=== PATIENT | female | born 1995 | race Caucasian/White ===

== ENCOUNTER 2019-07-01 10:12 | Emergency (ER) | payer OTHER, SELFPAY ==
--- NOTE | ~2019-07-01 | XR_ITS ---
EXAMINATION: XR knee RT min 4V DATE: 07/01/2019 10:50 INDICATION: Right knee pain. TECHNIQUE: 4 views of right knee were obtained. COMPARISON: None. FINDINGS: Bone alignment is normal. No fracture. There is mild osteoarthritis of lateral compartment. No knee joint effusion. IMPRESSION: 1. Mild right knee osteoarthritis. Reviewed, dictated and finalized at location A.
[2019-07-01 10:25] VITALS: BP 133/89; PULSE 83; RESP 18; TEMP 37.5; O2SAT 99
--- NOTE | 2019-07-01 10:33 | ED.LOWEXIN ---
HPI - Extremity Injury (Lower) General Chief Complaint: Extremity Injury, Lower Stated Complaint: Knee Pain Time Seen by Provider: 07/01/19 10:33 Source: patient and RN notes reviewed History of Present Illness HPI Narrative: Patient is a 24-year-old female that presents the urgent care with complaints of right knee pain. Patient states that she injured it severely at 12 years old and ever since then the knee has been a little unstable and caused her intermittent pain. Patient states that yesterday she squatted down at work and felt a pop and a dislocation of the kneecap . Patient states that since then it is been excruciating pain with difficulty ambulating or bearing weight. Patient states that she took ibuprofen at 530 this morning without much improvement. No other acute complaints or injuries. Patient read the plan of care. Related Data Allergies Allergy/AdvReac Type Severity Reaction Status Date / Time banana Allergy Unknown Verified 07/01/19 10:32 Penicillins Allergy Unknown HIVES Verified 07/01/19 10:32 Review of Systems Review of Systems: Narrative: CONSTITUTIONAL: Denies fever, chills, or sweats. EYES: Denies visual changes, redness, or discharge. ENT: Denies rhinorrhea, congestion, sore throat, or otalgia. CARDIOVASCULAR: Denies chest pain, palpitations, or edema. RESPIRATORY: Denies cough or dyspnea. GASTROINTESTINAL: Denies abdominal pain, nausea, vomiting, or diarrhea. GENITOURINARY: Denies dysuria or hematuria. SKIN: Denies rash or itching. MUSCULOSKELETAL: Reports of right knee pain NEUROLOGIC: Denies headache, numbness, or weakness. All other systems reviewed are negative, except as documented in HPI. PMFSH Comments At the time of my signature, I reviewed and agree with the nursing past medical, surgical, social, and family history. There is no relevant family history pertinent to the patient complaint. Exam Narrative: Exam Narrative: GENERAL: This is a well-nourished, well-developed patient, in no apparent distress. HEAD: normocephalic, atraumatic. EYES: PERRL. Sclera clear/white. Vision is grossly intact. EARS: External ears normal NOSE: External nose normal with no obvious nasal discharge THROAT: Mucous membranes moist NECK: Neck supple CARDIOVASCULAR: Regular rate and rhythm without murmurs, gallops, or rubs. RESPIRATORY: Clear to auscultation. Breath sounds equal bilaterally. No wheezes, rales, or rhonchi. SKIN: warm, intact with no suspicious lesions or rash, good texture and turgor. NEURO: awake, alert, and oriented to person, place and time. There were no obvious focal neurologic abnormalities. EXTREMITIES: Moderate Course Vital Signs Vital signs: Vital Signs Temperature 99.5 F 07/01/19 10:25 Pulse Rate 83 07/01/19 10:25 Respiratory Rate 18 07/01/19 10:25 Blood Pressure 133/89 07/01/19 10:25 Pulse Oximetry 99 07/01/19 10:25 Temperature 99.5 F 07/01/19 10:25 Pulse Rate 83 07/01/19 10:25 Respiratory Rate 18 07/01/19 10:25 Blood Pressure 133/89 07/01/19 10:25 Pulse Oximetry 99 07/01/19 10:25 Reviewed MDM - Extremity Injury (Lower) MDM Narrative Medical decision making narrative: Reviewed x-ray results with the patient. She is aware that x-ray does not reveal any meniscal injuries but that is likely the case. Patient needs to follow-up with a CT/MRI from a primary care doctor or an orthopedic. Patient does have mild knee osteoarthritis seen on x-ray. No fracture or bone alignment abnormality. No obvious joint effusion on x-ray. Advised the patient to wear her knee immobilizer or at the very least an Judd wrap. Patient may also obtain crutches. Patient states that her Workmen's Comp. does not cover our facility and therefore will obtain those things outside of our facility. Keep the knee elevated and use ice. Use pain medicine as needed for pain. Advised the patient to follow-up with her PCP within 2 to 5 days to obtain further imaging. Differential
== END 2019-07-01 11:20 | disposition home or self-care (01) ==
PROVIDERS: Emergency Provider Nurse Practitioner Family; PCP Family Medicine
DX: S89.91XA Unspecified injury of right lower leg, initial encounter (principal); X50.9XXA Other and unspecified overexertion or strenuous movements or postures, initial encounter; M17.11 Unilateral primary osteoarthritis, right knee
CPT/HCPCS: 73564; 99213; G0463

== ENCOUNTER 2020-12-27 06:43 | Observation (INO) | payer OTHER, SELFPAY ==
[2020-12-27] VITALS (35 sets, daily range): BP systolic 108–121; BP diastolic 64–82; PULSE 55–96; RESP 20; TEMP 36.3; O2SAT 92–100; BMI 38.2
--- NOTE | 2020-12-27 02:30 | OBADM ---
This patient, Lobo Hahn, admitted to the OB room OB Post 117 for observation. Patient/family oriented to hospital policies and general routines including ID bracelet, bed and alarms, visiting hours, pain management, procedures, bathroom and other care routines, personal items, smoking policy, room service/diet, and visiting hours. Patient/Family are encouraged to report perceived risks to care and to ask questions if they do not understand what they are told or what they should do.
[2020-12-27] MEDS: ONDANSETRON INJ 4 MG/2 ML VIAL IV PUSH (03:33)
[2020-12-27] MEDS: HYDROcodone/acetaminophen (*CRX) 5-325 MG TABLET 2 TAB PO (03:33)
[2020-12-27] MEDS: TERBUTALINE SULFATE 1 MG/ML VIAL 0.25 MG SUB-Q (04:17)
--- NOTE | 2021-01-19 19:27 | PM.OBTRLD ---
OB - Triage/Final Diagnosis Visit Information Comments/Additional reasons for admission: I have assessed the risk for this patient, Lobo Hahn, and determined that she would benefit from observation care. Final Diagnosis (1) Gestational hypertension: Code(s): O13.9 - Gestational [-induced] hypertension without significant proteinuria, unspecified trimester Status: Acute
== END 2020-12-27 06:50 | disposition home or self-care (01) ==
LOC: ANHOBOP 06:45 → ANHOBPP 06:47
PROVIDERS: Admitting Provider Obstetrics & Gynecology; PCP Family Medicine; Visit Provider Obstetrics & Gynecology
DX: O13.3 Gestational [pregnancy-induced] hypertension without significant proteinuria, third trimester (principal); Z3A.33 33 weeks gestation of pregnancy
CPT/HCPCS: 96372; 96374; A9270; G0378; G0379; J2405; J3105

== ENCOUNTER 2021-01-09 23:43 | Observation (INO) | payer OTHER, SELFPAY ==
--- NOTE | 2021-01-09 23:43 | OBADM ---
This patient, Lobo Hahn, admitted to the OB room OB Post 113 for observation. Patient/family oriented to hospital policies and general routines including ID bracelet, bed and alarms, visiting hours, pain management, procedures, bathroom and other care routines, personal items, smoking policy, room service/diet, and visiting hours. Patient/Family are encouraged to report perceived risks to care and to ask questions if they do not understand what they are told or what they should do.
[2021-01-10 00:13] VITALS: BMI 39.7
[2021-01-10 00:14] VITALS: BP 105/77; PULSE 82
[2021-01-10 00:19] VITALS: TEMP 36.2
[2021-01-10 00:30] VITALS: BP 118/77; PULSE 92
[2021-01-10] MEDS: ACETAMINOPHEN 500 MG TABLET 1000 MG PO (00:32)
[2021-01-10 00:50] LABS: Add Urine Microscopic? YES; Appearance Urine Cloudy (Clear); Bacteria Urine Trace /hpf; Bilirubin Urine Negative (Negative); Blood Urine Negative (Negative); Color Urine Yellow (Yellow); Glucose Urine UA Negative (Negative); Ketones Urine Negative (Negative); Leukocyte Esterase Ur 2+ LEU/UL (NEGATIVE); Mucus Urine Rare /lpf; Nitrate Urine Negative (Negative); Protein Urine 1+ mg/dL (Negative); RBC Urine >75 /hpf (0-2); Specific Grav Ur 1.023 (1.001-1.035); Squamous Epithelial Cell Urine Many /hpf (Few); WBC Urine 21-30 /hpf (0-3)
[2021-01-10 01:01] VITALS: BP 116/78; PULSE 73
--- NOTE | 2021-02-02 18:53 | P.PNOB_ITS ---
OB - Triage/Final Diagnosis Visit Information Comments/Additional reasons for admission: I have assessed the risk for this patient, Lobo Hahn, and determined that she would benefit from observation care. Evaluation Laboratory results: Laboratory Tests 01/10/21 00:06 Urine Color Yellow Urine Appearance Cloudy H Urine pH 6.0 Ur Specific [place] 1.023 Urine Protein 1+ H Urine Glucose (UA) Negative Urine Ketones Negative Ur Blood (Man) Negative Urine Nitrate Negative Urine Bilirubin Negative Urine Urobilinogen 2.0 H Ur Leukocyte Esterase 2+ H Urine RBC >75 H Urine WBC 21-30 H Ur Squamous Epith Cells Many H Urine Bacteria Trace Urine Mucus Rare Final Diagnosis (1) False labor: Code(s): O47.9 - False labor, unspecified Status: Acute
== END 2021-01-10 01:35 | disposition home or self-care (01) ==
PROVIDERS: Admitting Provider Obstetrics & Gynecology; PCP Family Medicine; Visit Provider Obstetrics & Gynecology
DX: O47.1 False labor at or after 37 completed weeks of gestation (principal); Z3A.39 39 weeks gestation of pregnancy
CPT/HCPCS: 81001; 87086; 87088; A9270; G0378; G0379

== ENCOUNTER 2021-01-14 13:07 | Outpatient (CLI) | payer OTHER, SELFPAY ==
[2021-01-14] VITALS (17 sets, daily range): BP systolic 113–136; BP diastolic 73–102; PULSE 68–90
[2021-01-14 14:01] LABS: Basophils Percent Auto 0.2 % (0.2-1.2); Eosinophils Percent Auto 0.3 % (0-4.4); Hematocrit 35.5 % (37.0-47.0); Hemoglobin 12.4 g/dL (12.0-15.0); Immature Granulocyte Absolute 0.07 K/mm3 (0.00-0.031); Immature Granulocyte Percent A 0.7 % (0-0.5); Lymphocytes Absolute Auto 1.58 K/mm3 (0.9-3.2); Lymphocytes Percent Auto 15.3 % (18.3-44.2); Mean Corpuscular HGB Conc 34.9 g/dl (32-36); Mean Corpuscular Hemoglobin 30.3 pg (26-34); Mean Corpuscular Volume 86.8 fl (80-100); Monocytes Absolute Auto 0.5 K/mm3 (0.1-0.6); Monocytes Percent Auto 4.5 % (2.6-8.5); Neutrophils Absolute Auto 8.1 K/mm3 (1.3-6.7); Platelet Count Result 226 k/mm3 (150-375); Red Blood Count 4.09 M/mm3 (4.2-5.4); Red Cell Distribution Width 13.3 % (11.5-14.5); White Blood Count 10.3 K/mm3 (4.5-10.0)
[2021-01-14 14:12] LABS: Alanine Aminotransferase 12 U/L (4-35); Albumin Level 3.4 g/dL (3.5-5.1); Alkaline Phosphatase 123 U/L (38-126); Anion Gap 9 mmol/L (8-16); Aspartate Amino Transferase 17 U/L (14-36); Bilirubin,Total 0.4 mg/dL (0.2-1.3); Blood Urea Nitrogen 7 mg/dL (7-17); Calcium 9.1 mg/dL (8.4-10.2); Carbon Dioxide 19 mmol/L (22-30); Chloride 108 mmol/L (98-107); Estimated Glomerular Filt Rate > 60; Glucose 92 mg/dL (65-110); Potassium 3.7 mmol/L (3.4-5.0); Sodium 136 mmol/L (137-145); Uric Acid 7.2 mg/dL (2.5-7.5)
[2021-01-14 15:13] LABS: Creatinine Urine 216.7 mg/dL
[2021-01-14 15:28] LABS: Total Protein Urine Random < 5 mg/dL; Ur Ttl Prot Creatinine Ratio 0.02 mg/mg (0-0.20)
[2021-01-14 15:50] LABS: Add Urine Microscopic? YES; Appearance Urine Cloudy (Clear); Bacteria Urine Trace /hpf; Bilirubin Urine Negative (Negative); Blood Urine Negative (Negative); Calcium Oxalate Crystals Urine Present /hpf; Color Urine Yellow (Yellow); Glucose Urine UA Negative (Negative); Ketones Urine Negative (Negative); Leukocyte Esterase Ur Trace LEU/UL (NEGATIVE); Mucus Urine Few /lpf; Nitrate Urine Negative (Negative); Protein Urine 1+ mg/dL (Negative); Specific Grav Ur 1.024 (1.001-1.035); Squamous Epithelial Cell Urine Occasional /hpf (Few); Urobilinogen Urine Negative mg/dL (<2.0); WBC Urine 0-3 /hpf (0-3)
--- NOTE | 2021-01-14 17:43 | PC.NURSE ---
174--Report to Dr. Mclaughlin. Orders to DC home with instructions to return for signs of labor or increasing signs of preeclampsia.
== END 2021-01-14 17:55 | disposition home or self-care (01) ==
LOC: ANHOBOP 13:13 → ANHOBPP 13:14
PROVIDERS: PCP Family Medicine; Visit Provider Obstetrics & Gynecology
DX: O13.9 Gestational [pregnancy-induced] hypertension without significant proteinuria, unspecified trimester (principal); Z3A.00 Weeks of gestation of pregnancy not specified
CPT/HCPCS: 36415; 80053; 81001; 82570; 84156; 84550; 85025; 87086; 99199; A9270

== ENCOUNTER 2021-01-15 21:16 | Observation (INO) | payer OTHER, SELFPAY ==
--- NOTE | ~2021-01-15 | CT_ITS ---
EXAMINATION: CT brain wo con DATE: 01/16/2021 11:20 INDICATION: Headache. TECHNIQUE: Computed tomography (CT) of the head was performed without intravenous contrast. The mA wa s adjusted according to patient size. Iterative reconstruction technique was employed. The dose-lengt h product was 605.33 mGy-cm. COMPARISON: None FINDINGS: There is no intracranial hemorrhage, acute infarction, or abnormal intracranial mass lesion . The ventricles are normal in size. The paranasal sinuses are clear. The orbits are normal. The mast oid air cells are normal. IMPRESSION: 1. Normal brain. Reviewed, dictated and finalized at location A. IMPRESSION: 1. Normal brain.
[2021-01-15 13:05] VITALS: BP 114/73; PULSE 88
[2021-01-15] MEDS: diphenhydrAMINE HCl INJ 50 MG/ML VIAL 25 MG IV PUSH (13:11)
[2021-01-15] MEDS: METOCLOPRAMIDE HCL INJ 10 MG/2 ML VIAL IV PUSH (13:12)
[2021-01-15 13:15] VITALS: BP 115/80; PULSE 79
[2021-01-15 13:18] LABS: Basophils Percent Auto 0.4 % (0.2-1.2); Eosinophils Absolute Auto 0.1 K/mm3 (0-0.3); Eosinophils Percent Auto 0.6 % (0-4.4); Hematocrit 34.1 % (37.0-47.0); Hemoglobin 11.8 g/dL (12.0-15.0); Immature Granulocyte Absolute 0.07 K/mm3 (0.00-0.031); Immature Granulocyte Percent A 0.7 % (0-0.5); Lymphocytes Absolute Auto 1.64 K/mm3 (0.9-3.2); Lymphocytes Percent Auto 17.2 % (18.3-44.2); Mean Corpuscular HGB Conc 34.6 g/dl (32-36); Mean Corpuscular Hemoglobin 29.8 pg (26-34); Mean Corpuscular Volume 86.1 fl (80-100); Mean Platelet Volume 10.1 fl (7.4-10.4); Monocytes Absolute Auto 0.4 K/mm3 (0.1-0.6); Monocytes Percent Auto 4.2 % (2.6-8.5); Neutrophils Absolute Auto 7.3 K/mm3 (1.3-6.7); Neutrophils Percent Auto 76.9 % (45.5-73.1); Platelet Count Result 211 k/mm3 (150-375); Red Blood Count 3.96 M/mm3 (4.2-5.4); Red Cell Distribution Width 13.3 % (11.5-14.5); White Blood Count 9.5 K/mm3 (4.5-10.0)
[2021-01-15 13:29] LABS: Alanine Aminotransferase 12 U/L (4-35); Albumin Level 3.1 g/dL (3.5-5.1); Alkaline Phosphatase 108 U/L (38-126); Anion Gap 8 mmol/L (8-16); Aspartate Amino Transferase 24 U/L (14-36); Bilirubin,Total 0.5 mg/dL (0.2-1.3); Blood Urea Nitrogen 6 mg/dL (7-17); Calcium 9.1 mg/dL (8.4-10.2); Carbon Dioxide 19 mmol/L (22-30); Chloride 108 mmol/L (98-107); Estimated Glomerular Filt Rate > 60; Glucose 114 mg/dL (65-110); Potassium 3.6 mmol/L (3.4-5.0); Sodium 135 mmol/L (137-145); Uric Acid 7.1 mg/dL (2.5-7.5)
[2021-01-15 13:31] VITALS: BP 110/75; PULSE 67
[2021-01-15 14:35] LABS: Creatinine Urine 268.8 mg/dL
[2021-01-15] MEDS: CYCLOBENZAPRINE HCL 10 MG TABLET PO (15:26)
[2021-01-15 16:19] LABS: Total Protein Urine Random < 5 mg/dL; Ur Ttl Prot Creatinine Ratio < 0.02 mg/mg (0-0.20)
[2021-01-15] MEDS: oxyCODONE HCL (*CRX) 5 MG TAB IR PO ×2 (18:13→20:58)
[2021-01-15] MEDS: LACTATED RINGERS 500 ML 999 ML IV CONT (18:51)
[2021-01-15 18:58] VITALS: BP 122/81; PULSE 75
[2021-01-15 20:46] VITALS: BP 122/86; PULSE 70
[2021-01-15 21:21] VITALS: PULSE 70; RESP 16
[2021-01-16] VITALS (7 sets, daily range): BP systolic 116–129; BP diastolic 76–86; PULSE 59–75; RESP 16; TEMP 36.4–36.9
[2021-01-16] MEDS: oxyCODONE HCL (*CRX) 5 MG TAB IR PO ×2 (00:51→07:07)
[2021-01-16] MEDS: LACTATED RINGERS 1,000 ML 150 ML IV CONT ×4 (02:39→22:50)
[2021-01-16] MEDS: fentaNYL CITRATE INJ (*CRX) 100 MCG/2 ML VIAL 50 MCG IV PUSH (02:43)
[2021-01-16] MEDS: PROMETHAZINE HCL 25 MG/ML AMPUL 12.5 MG IV PUSH ×2 (02:44→08:07)
[2021-01-16 05:02] LABS: Basophils Percent Auto 0.4 % (0.2-1.2); Eosinophils Absolute Auto 0.1 K/mm3 (0-0.3); Hematocrit 32.6 % (37.0-47.0); Hemoglobin 11.1 g/dL (12.0-15.0); Immature Granulocyte Absolute 0.07 K/mm3 (0.00-0.031); Immature Granulocyte Percent A 0.9 % (0-0.5); Lymphocytes Absolute Auto 1.97 K/mm3 (0.9-3.2); Lymphocytes Percent Auto 25.6 % (18.3-44.2); Mean Corpuscular Hemoglobin 30.4 pg (26-34); Mean Corpuscular Volume 89.3 fl (80-100); Mean Platelet Volume 9.7 fl (7.4-10.4); Monocytes Absolute Auto 0.4 K/mm3 (0.1-0.6); Monocytes Percent Auto 5.3 % (2.6-8.5); Neutrophils Absolute Auto 5.1 K/mm3 (1.3-6.7); Neutrophils Percent Auto 66.8 % (45.5-73.1); Platelet Count Result 162 k/mm3 (150-375); Red Blood Count 3.65 M/mm3 (4.2-5.4); Red Cell Distribution Width 13.6 % (11.5-14.5); White Blood Count 7.7 K/mm3 (4.5-10.0)
[2021-01-16 05:16] LABS: Alanine Aminotransferase 11 U/L (4-35); Albumin Level 2.8 g/dL (3.5-5.1); Alkaline Phosphatase 101 U/L (38-126); Anion Gap 5 mmol/L (8-16); Aspartate Amino Transferase 17 U/L (14-36); Bilirubin,Total 0.2 mg/dL (0.2-1.3); Blood Urea Nitrogen 5 mg/dL (7-17); Calcium 8.7 mg/dL (8.4-10.2); Carbon Dioxide 23 mmol/L (22-30); Chloride 110 mmol/L (98-107); Estimated Glomerular Filt Rate > 60; Glucose 99 mg/dL (65-110); Potassium 3.7 mmol/L (3.4-5.0); Sodium 138 mmol/L (137-145); Uric Acid 6.9 mg/dL (2.5-7.5)
--- NOTE | 2021-01-16 08:06 | PM.IMHP ---
H&P: HPI History of Present Illness Date/Time: 01/16/21 08:06 this patient is a 25-year-old 1 at 36 weeks and 0 day gestation. She presented complaining of a headache. It is a frontal headache. she describes as pressure. It is throbbing. She has light sensitivity. She reports diffuse abdominal pain throughout her abdomen. It is vague. Patient denies any visual disturbances. Patient denies any worsening edema. Patient reports good movement. She denies any cramping or contractions. She denies any vaginal bleeding. She denies any fevers or chills, nausea, vomiting. Chief Complaint: Headache Review of Systems Review of Systems: All systems reviewed & are unremarkable except as noted in HPI and below Constitutional: Constitutional: Denies chills, Denies fatigue, Denies fever(s) and Denies weakness Eyes: Eyes: Denies blurry vision, Denies change in vision, Denies loss of peripheral vision, Denies loss of vision, Denies other visual disturbances and Denies eye pain ENT: Denies vertigo, Denies dizziness, Denies hearing loss, Denies mouth pain, Denies nasal obstruction, Denies neck mass and Denies neck pain Cardiovascular: Cardiovascular: Denies chest pain, Denies diaphoresis, Denies syncope, Denies leg edema and Denies dyspnea Respiratory: Respiratory: Denies chest congestion, Denies cough, Denies hemoptysis, Denies dyspnea and Denies wheezing Gastrointestinal: Gastrointestinal: Denies abdominal pain, Denies constipation, Denies diarrhea, Denies nausea and Denies vomiting Genitourinary: Genitourinary: Denies hematuria, Denies change in libido, Denies nocturia, Denies genital lesions, Denies flank pain and Denies urinary urgency Musculoskeletal: Musculoskeletal: Denies abnormal gait, Denies back pain, Denies myalgias, Denies arthralgias, Denies joint swelling, Denies muscle weakness and Denies neck pain Integumentary/Breasts: Skin/Breast: Denies swelling, Denies breast pain, Denies breast mass, Denies dry skin, Denies nipple discharge, Denies unusual bruising and Denies jaundice Neurologic: Denies Neuro-related abnormal movements, Denies Abnormal speech present, Denies abnormal gait, Denies behavioral changes, Denies confusion, Denies vertigo, Denies dizziness, Denies syncope, Denies loss of vision, Denies memory loss, Denies convulsions and Denies weakness Psychiatric: Psychiatric: Denies abnormal sleep pattern, Denies behavioral changes, Denies change in libido, Denies confusion, Denies depression, Denies anhedonia and Denies memory loss Endocrine: Endocrine: Reports no additional endocrine complaints, Denies change in libido and Denies fatigue Hematologic/Lymphatic: Hematologic/Lymphatic: Reports no additional hematologic/lymphatic complaints Allergic/Immunologic: Allergic/Immunologic: Reports no additional allergic/immunologic complaints and Denies wheezing PMFSH Family History Family History (Updated 01/14/21 @ 13:38 by Reed Vera, MANGO) Grandparent Breast cancer in female Alzheimer disease Father Hypertension Kidney stones Gall stones Arthritis Mother Thyroid goiter Social History Social History Substance use: former Spiritual care concerns: No Meds Home Medications and Allergies Home Medications Medication Instructions Recorded Confirmed Type PNV cmb#95-ferrous fumarate-FA 1 tablet PO DAILY 01/10/21 01/15/21 History [] Allergies Allergy/AdvReac Type Severity Reaction Status Date / Time banana Allergy Unknown Swelling Verified 01/14/21 13:33 Penicillins Allergy Unknown HIVES Verified 11/07/19 09:06 Vital Signs Vital Signs - 24 hr 01/15/21 13:05 01/15/21 13:15 01/15/21 13:31 Temperature Pulse Rate 88 79 67 Respiratory Rate Blood Pressure 114/73 115/80 110/75 01/15/21 18:58 01/15/21 20:46 01/15/21 21:21 Temperature Pulse Rate 75 70 70 Respiratory Rate 16 Blood Pressure 122/81 122/
[2021-01-16] MEDS: fentaNYL CITRATE INJ (*CRX) 100 MCG/2 ML VIAL IV PUSH (08:08)
--- NOTE | 2021-01-16 12:34 | WPDNEURCNPN ---
Assessment and Plan Additional Plan considering the complaint of severe headache will obtain the plain CT scan of the head without contrast with abdominal shielding once she delivers the baby further evaluation will be done according if he continues to have frequent severe headaches I might consider the spinal tap to rule out the possibility of pseudotumor cerebri as well and also MRI of the brain thank you very much for letting me evaluate this patient Consult date: 01/16/21 HPI: Lobo Hahn is a 25 year old female 1 at 36 weeks gestation admitted to the hospital neurology consultation obtained for the complains of severe frontal headache with photophobia and phonophobia without obvious nausea and vomiting in addition to no other medical significant problem Review of Systems Review of Systems: All systems reviewed & are unremarkable except as noted in HPI and below PMFSH Family History Family History Grandparent Breast cancer in female Alzheimer disease Father Hypertension Kidney stones Gall stones Arthritis Mother Thyroid goiter Social History Social History Substance use: former Spiritual care concerns: No Meds Home Medications and Allergies Home Medications Medication Instructions Recorded Confirmed Type PNV cmb#95-ferrous fumarate-FA 1 tablet PO DAILY 01/10/21 01/15/21 History [] Allergies Allergy/AdvReac Type Severity Reaction Status Date / Time banana Allergy Unknown Swelling Verified 01/14/21 13:33 Penicillins Allergy Unknown HIVES Verified 11/07/19 09:06 Vital Signs Vital Signs - 24 hr 01/15/21 13:05 01/15/21 13:15 01/15/21 13:31 Temperature Pulse Rate 88 79 67 Respiratory Rate Blood Pressure 114/73 115/80 110/75 01/15/21 18:58 01/15/21 20:46 01/15/21 21:21 Temperature Pulse Rate 75 70 70 Respiratory Rate 16 Blood Pressure 122/81 122/86 01/16/21 00:04 01/16/21 00:52 01/16/21 02:37 Temperature 36.7 C Pulse Rate 75 61 Respiratory Rate 16 Blood Pressure 126/78 124/77 01/16/21 04:51 01/16/21 07:10 Temperature 36.4 C Pulse Rate 59 L 62 Respiratory Rate 16 Blood Pressure 116/76 120/86 Exam Narrative: examination revealed her to be awake alert cooperative in no obvious acute distress head normocephalic with no cranial bruit ear nose throat examination normal neck supple with no meningeal signs no cervical bruit no thyromegaly no lymphadenopathy heart regular with no murmur lungs were clear to auscultation abdomen is soft protuberant neurological is she was awake alert oriented x3 with normal full speech without evidence of dysphagia dysarthria or dysphonia pupils round regular feels the vision full extraocular movements full face symmetrical tongue midline motor examination revealed her to have normal strength and tone in both upper and lower extremities reflexes symmetrical plantars downgoing no evidence of gross sensory or cerebellar deficit Results Labs CBC & Chem 7: 01/16/21 04:56 01/16/21 04:56 Labs: Short CBC 01/15/21 01/16/21 Range/Units 13:02 04:56 WBC 9.5 7.7 (4.5-10.0) K/mm3 Hgb 11.8 L 11.1 L (12.0-15.0) g/dL Hct 34.1 L 32.6 L (37.0-47.0) % Plt Count 211 162 (150-375) k/mm3 BMP 01/15/21 01/16/21 13:02 04:56 Sodium 135 L 138 Potassium 3.6 3.7 Chloride 108 H 110 H Carbon Dioxide 19 L 23 BUN 6 L 5 L Creatinine 0.50 L 0.60 L Glucose 114 H 99 Calcium 9.1 8.7 Liver Function 01/15/21 01/16/21 Range/Units 13:02 04:56 Total Bilirubin 0.5 0.2 (0.2-1.3) mg/dL AST 24 17 (14-36) U/L ALT 12 11 (4-35) U/L Alkaline Phosphatase 108 101 (38-126) U/L Albumin 3.1 L 2.8 L (3.5-5.1) g/dL AMG Consult Billing Inpatient Consult [id number] Consult Moderate
[2021-01-16] MEDS: oxyCODONE/ACETAMINOPHEN (*CRX) 5-325 MG TABLET 2 TABLET PO (12:39)
--- NOTE | 2021-01-16 19:09 | PC.NURSE ---
Called Dr. Sykes and asked for NST q 8hour due to reactive tracing and no contractions. also asked for fioricet for headache as needed. order received for NST Q 8H and Fiorricet for headache.
[2021-01-17 04:52] VITALS: BP 133/85; PULSE 60
[2021-01-17] MEDS: LACTATED RINGERS 1,000 ML 150 ML IV CONT (05:14)
[2021-01-17 05:31] VITALS: BP 133/85; PULSE 60
--- NOTE | 2021-01-17 07:58 | P.PNOB_ITS ---
Pain Control Date/time seen: 01/17/21 07:58 Comments: Lobo is a 25yo G1 at 36 weeks with persistent pressure headache, worse behind eyes. Is consistently a 7-8 on pain scale, though fentanyl and fioricet help it a bit. Denies visual sx, no photophobia or phonophobia, no sinus pain. Status status: Category l Assessment and Plan Comments: s/p neuro consult and normal CT scan I suspect psuedotumor cerebri more likely than atypical preE. 24 hour urine done this afternoon Since neuro does not want to do spinal tap, will try Diamox to see if her CALLE imp roves. If 24 hour urine normal, consider DC home with very close follow up.
[2021-01-17] MEDS: acetaZOLAMIDE TAB 250 MG TABLET 500 MG PO (08:39)
[2021-01-17 08:42] VITALS: BP 119/80; PULSE 67
--- NOTE | 2021-01-17 10:30 | PC.NURSE ---
Patient states that she is feeling a bit better, states that her light sensitivity is better but her still have pressure in her head
[2021-01-17 13:40] VITALS: BMI 41.8
[2021-01-17 15:08] VITALS: BP 130/87; PULSE 73
--- NOTE | 2021-01-17 16:15 | PC.NURSE ---
Patient states that she is having a little tingling in her face and hands. Dr Mclaughlin notified of this, plan for 24 hours urine to run and if less than 300 may dc patient home with RX.
[2021-01-17 16:30] LABS: Collection Time Urine 24 HOURS
[2021-01-17 16:34] LABS: Total Volume 24 Hour Urine 2000 ml
[2021-01-17 16:35] LABS: Patient Weight 308 Lbs; Total Volume 24 Hour Urine 2000 ml
[2021-01-17 16:47] LABS: Creatinine Clearance Urine 125.6 ml/min (75-125)
[2021-01-17 16:48] LABS: Total Protein Urine 24 Hr 160 mg/24hr (28-141); Total Protein Urine Random 8 mg/dL
[2021-01-17 17:59] VITALS: BP 133/85; PULSE 73
--- NOTE | 2021-01-27 09:41 | PM.OBTRLD ---
OB - Triage/Final Diagnosis Visit Information Comments/Additional reasons for admission: I have assessed the risk for this patient, Lobo Hahn, and determined that she would benefit from observation care. Evaluation Laboratory results: Laboratory Tests 01/15/21 01/15/21 01/15/21 13:02 13:02 13:02 WBC 9.5 RBC 3.96 L Hgb 11.8 L Hct 34.1 L MCV 86.1 MCH 29.8 MCHC 34.6 RDW 13.3 Plt Count 211 MPV 10.1 Immature Gran % (Auto) 0.7 H Neut % (Auto) 76.9 H Lymph % (Auto) 17.2 L [place] % (Auto) 4.2 Eos % (Auto) 0.6 Baso % (Auto) 0.4 Lymph # (Auto) 1.64 [place] # (Auto) 0.4 Eos # (Auto) 0.1 Baso # (Auto) 0.0 Abs Immat Gran (auto) 0.07 H Absolute Neuts (auto) 7.3 H Absolute Nucleated RBC 0.0 Nucleated RBC % 0.0 Sodium 135 L Potassium 3.6 Chloride 108 H Carbon Dioxide 19 L Anion Gap 8 BUN 6 L Creatinine 0.50 L Estim Creat Clear Calc Not Reportable Estimated GFR > 60 Glucose 114 H Uric Acid 7.1 Calcium 9.1 Total Bilirubin 0.5 AST 24 ALT 12 Alkaline Phosphatase 108 Total Protein 6.0 L Albumin 3.1 L U Random Total Protein < 5 Ur 24 Hour Volume Urine Creatinine 268.8 Creatinine Clearance Ur Total Protein 24 Hr Protein/Creat Ratio 2 < 0.02 01/16/21 01/16/21 01/16/21 04:56 04:56 13:30 WBC 7.7 RBC 3.65 L Hgb 11.1 L Hct 32.6 L MCV 89.3 MCH 30.4 MCHC 34.0 RDW 13.6 Plt Count 162 MPV 9.7 Immature Gran % (Auto) 0.9 H Neut % (Auto) 66.8 Lymph % (Auto) 25.6 [place] % (Auto) 5.3 Eos % (Auto) 1.0 Baso % (Auto) 0.4 Lymph # (Auto) 1.97 [place] # (Auto) 0.4 Eos # (Auto) 0.1 Baso # (Auto) 0.0 Abs Immat Gran (auto) 0.07 H Absolute Neuts (auto) 5.1 Absolute Nucleated RBC 0.0 Nucleated RBC % 0.0 Sodium 138 Potassium 3.7 Chloride 110 H Carbon Dioxide 23 Anion Gap 5 L BUN 5 L Creatinine 0.60 L Estim Creat Clear Calc Not Reportable Estimated GFR > 60 Glucose 99 Uric Acid 6.9 Calcium 8.7 Total Bilirubin 0.2 AST 17 ALT 11 Alkaline Phosphatase 101 Total Protein 6.0 L Albumin 2.8 L U Random Total Protein Ur 24 Hour Volume 2000 Urine Creatinine 80.0 Creatinine Clearance 125.6 H Ur Total Protein 24 Hr Protein/Creat Ratio 2 01/16/21 13:30 WBC RBC Hgb Hct MCV MCH MCHC RDW Plt Count MPV Immature Gran % (Auto) Neut % (Auto) Lymph % (Auto) [place] % (Auto) Eos % (Auto) Baso % (Auto) Lymph # (Auto) [place] # (Auto) Eos # (Auto) Baso # (Auto) Abs Immat Gran (auto) Absolute Neuts (auto) Absolute Nucleated RBC Nucleated RBC % Sodium Potassium Chloride Carbon Dioxide Anion Gap BUN Creatinine Estim Creat Clear Calc Estimated GFR Glucose Uric Acid Calcium Total Bilirubin AST ALT Alkaline Phosphatase Total Protein Albumin U Random Total Protein 8 Ur 24 Hour Volume 2000 Urine Creatinine Creatinine Clearance Ur Total Protein 24 Hr 160 H Protein/Creat Ratio 2 Final Diagnosis (1) False labor: Code(s): O47.9 - False labor, unspecified Status: Acute
--- NOTE | 2021-01-31 07:47 | PM.OBTRLD ---
OB - Triage/Final Diagnosis Visit Information Comments/Additional reasons for admission: I have assessed the risk for this patient, Lobo Hahn, and determined that she would benefit from observation care. Evaluation Laboratory results: Laboratory Tests 01/15/21 01/15/21 01/15/21 13:02 13:02 13:02 WBC 9.5 RBC 3.96 L Hgb 11.8 L Hct 34.1 L MCV 86.1 MCH 29.8 MCHC 34.6 RDW 13.3 Plt Count 211 MPV 10.1 Immature Gran % (Auto) 0.7 H Neut % (Auto) 76.9 H Lymph % (Auto) 17.[address] [place] % (Auto) 4.2 Eos % (Auto) 0.6 Baso % (Auto) 0.4 Lymph # (Auto) 1.64 [place] # (Auto) 0.4 Eos # (Auto) 0.1 Baso # (Auto) 0.0 Abs Immat Gran (auto) 0.07 H Absolute Neuts (auto) 7.3 H Absolute Nucleated RBC 0.0 Nucleated RBC % 0.0 Sodium 135 L Potassium 3.6 Chloride 108 H Carbon Dioxide 19 L Anion Gap 8 BUN 6 L Creatinine 0.50 L Estim Creat Clear Calc Not Reportable Estimated GFR > 60 Glucose 114 H Uric Acid 7.1 Calcium 9.1 Total Bilirubin 0.5 AST 24 ALT 12 Alkaline Phosphatase 108 Total Protein 6.0 L Albumin 3.1 L U Random Total Protein < 5 Ur 24 Hour Volume Urine Creatinine 268.8 Creatinine Clearance Ur Total Protein 24 Hr Protein/Creat Ratio 2 < 0.02 01/16/21 01/16/21 01/16/21 04:56 04:56 13:30 WBC 7.7 RBC 3.65 L Hgb 11.1 L Hct 32.6 L MCV 89.3 MCH 30.4 MCHC 34.0 RDW 13.6 Plt Count 162 MPV 9.7 Immature Gran % (Auto) 0.9 H Neut % (Auto) 66.8 Lymph % (Auto) 25.6 [place] % (Auto) 5.3 Eos % (Auto) 1.0 Baso % (Auto) 0.4 Lymph # (Auto) 1.97 [place] # (Auto) 0.4 Eos # (Auto) 0.1 Baso # (Auto) 0.0 Abs Immat Gran (auto) 0.07 H Absolute Neuts (auto) 5.1 Absolute Nucleated RBC 0.0 Nucleated RBC % 0.0 Sodium 138 Potassium 3.7 Chloride 110 H Carbon Dioxide 23 Anion Gap 5 L BUN 5 L Creatinine 0.60 L Estim Creat Clear Calc Not Reportable Estimated GFR > 60 Glucose 99 Uric Acid 6.9 Calcium 8.7 Total Bilirubin 0.2 AST 17 ALT 11 Alkaline Phosphatase 101 Total Protein 6.0 L Albumin 2.8 L U Random Total Protein Ur 24 Hour Volume 2000 Urine Creatinine 80.0 Creatinine Clearance 125.6 H Ur Total Protein 24 Hr Protein/Creat Ratio 2 01/16/21 13:30 WBC RBC Hgb Hct MCV MCH MCHC RDW Plt Count MPV Immature Gran % (Auto) Neut % (Auto) Lymph % (Auto) [place] % (Auto) Eos % (Auto) Baso % (Auto) Lymph # (Auto) [place] # (Auto) Eos # (Auto) Baso # (Auto) Abs Immat Gran (auto) Absolute Neuts (auto) Absolute Nucleated RBC Nucleated RBC % Sodium Potassium Chloride Carbon Dioxide Anion Gap BUN Creatinine Estim Creat Clear Calc Estimated GFR Glucose Uric Acid Calcium Total Bilirubin AST ALT Alkaline Phosphatase Total Protein Albumin U Random Total Protein 8 Ur 24 Hour Volume 2000 Urine Creatinine Creatinine Clearance Ur Total Protein 24 Hr 160 H Protein/Creat Ratio 2 Final Diagnosis (1) False labor: Code(s): O47.9 - False labor, unspecified Status: Acute
--- NOTE | 2021-02-07 08:02 | P.DS_ITS ---
DS: Admitting Diagnosis Discharge Date 01/17/21 Admitting Diagnosis preeclampsia DS: Discharge Diagnosis Discharge Diagnosis (1) Pre-eclampsia, delivered: Code(s): O14.94 - Unspecified pre-eclampsia, complicating childbirth Status: Acute (2) Term delivered: Code(s): O80 - Encounter for full-term uncomplicated delivery Status: Acute OB - DS: Summary OB Procedures : NST and Ultrasound OB Procedures Intrapartum: Spontaneous Vag Delivery OB Procedures: : None Peripartum Data complications: none Time Spent with Patient Time attestation: Total time spent providing and/or coordinating discharge services: Discharge Plan Discharge Consulting providers: Ben Moreno ; Heriberto Roman V. ; Kellie Flood Discharging Clinician: Georgia Mclaughlin Patient Disposition: Home, Self-Care Activity: as tolerated Diet: as tolerated Discharge Instructions: OB ANTEPARTUM DISCHARGE INSTRUCTIONS This information is given to help you properly care for yourself at home after your discharge from the hospital. Follow these instructions until your doctor t ells you otherwise. DIET: Eat Three Well Balanced Meals per Day Drink at Least Eight 8-Ounce Glasses of Caffeine-Free Beverages Daily Additional Diet Instructions: ACTIVITY: As Tolerated Increase Periods of Rest Additional Activity Instructions: RETURN TO LABOR AND DELIVERY IF YOU HAVE: Any Change In Baby's Normal Movement Pattern Contractions 3-5 Minutes Apart with Increasing Intensity Vaginal Bleeding Worsening Signs of Hypertension in as per Handout Additional Reasons to Return to Labor and Delivery: Contractions may feel like abdominal pain, tightening, cramping, pressure, back ache, or thigh ache. FOLLOW-UP CARE: Follow up next week with MD Hel[place] released to patient or family? N/A Medications from home returned to patient? N/A I Acknowledge Receipt of and Understand the Above Instructions IF YOU HAVE ANY QUESTIONS REGARDING THESE INSTRUCTIONS, PLEASE CALL [phone]. IF PROBLEMS ARISE, CALL YOUR PROVIDER. IF EMERGENCY CARE IS NEEDED, [facility] EMERG[facility]Y ROOM IS AVAILABLE 24 HOURS A DAY. Stand Alone Forms: General Discharge Information, Work/School Release IP Follow-up/Referrals: Georgia Mclaughlin MD [Physician] - Discharge Medications: Continued PNV cmb#95-ferrous fumarate-FA [] 28 mg iron- 800 mcg Tablet 1 tablet PO DAILY RF: 0 Date of admission: 01/15/21 21:16 Primary Care Provider: Ta Meyers Admitting Provider: Letha Sykes Attending physician on admission: Georgia Mclaughlin Condition: Stable
== END 2021-01-17 17:50 | disposition home or self-care (01) ==
LOC: ANHOBOP 21:17 → ANHOBPP 21:17
PROVIDERS: Advanced Practice Midwife; Admitting Provider Obstetrics & Gynecology; PCP Family Medicine; Visit Provider Obstetrics & Gynecology
DX: O99.891 Other specified diseases and conditions complicating pregnancy (principal); R51.9 Headache, unspecified; Z3A.36 36 weeks gestation of pregnancy
CPT/HCPCS: 36415; 59025; 70450; 80053; 81050; 82570; 82575; 84156; 84550; 85025; 96360; 96361; 96365; 96366; 96374; 96375; 96376; A9270; G0378; G0379; J0131; J1200; J2550; J2765; J3010; J7120

== ENCOUNTER 2021-01-20 15:11 | Observation (INO) | payer OTHER, SELFPAY ==
--- NOTE | 2021-01-20 15:11 | OBADM ---
This patient, Lobo Hahn, admitted to the OB room OB Post 115 for observation. Patient/family oriented to hospital policies and general routines including ID bracelet, bed and alarms, visiting hours, pain management, procedures, bathroom and other care routines, personal items, smoking policy, room service/diet, and visiting hours. Patient/Family are encouraged to report perceived risks to care and to ask questions if they do not understand what they are told or what they should do.
[2021-01-20 15:30] VITALS: BMI 40.9
[2021-01-20] MEDS: DEXTROSE 5%/LACTATED RINGERS 1,000 ML 999 ML IV CONT (18:33)
[2021-01-20 18:41] VITALS: BMI 40.9
[2021-01-20 18:43] VITALS: RESP 18; TEMP 36.8
[2021-01-20 19:33] VITALS: BP 118/70; PULSE 83
[2021-01-20 19:59] LABS: Add Urine Microscopic? YES; Amorphous Sediment Urine Few; Appearance Urine Cloudy (Clear); Bacteria Urine Trace /hpf; Bilirubin Urine Negative (Negative); Blood Urine Negative (Negative); Color Urine Amber (Yellow); Glucose Urine UA Negative (Negative); Ketones Urine Negative (Negative); Leukocyte Esterase Ur Negative LEU/UL (NEGATIVE); Mucus Urine Heavy /lpf; Nitrate Urine Negative (Negative); Protein Urine 1+ mg/dL (Negative); RBC Urine 0-2 /hpf (0-2); Specific Grav Ur 1.029 (1.001-1.035); Squamous Epithelial Cell Urine Rare /hpf (Few); Urobilinogen Urine Negative mg/dL (<2.0)
[2021-01-20] MEDS: ONDANSETRON INJ 4 MG/2 ML VIAL IV PUSH (20:30)
[2021-01-20 21:12] VITALS: RESP 18
--- NOTE | 2021-01-24 14:11 | PM.OBTRLD ---
OB - Triage/Final Diagnosis Visit Information Comments/Additional reasons for admission: I have assessed the risk for this patient, Lobo Hahn, and determined that she would benefit from observation care. Evaluation Laboratory results: Laboratory Tests 01/20/21 19:28 Urine Color [place]ana Urine Appearance Cloudy H Urine pH 5.0 Ur Specific [place] 1.029 Urine Protein 1+ H Urine Glucose (UA) Negative Urine Ketones Negative Ur Blood (Man) Negative Urine Nitrate Negative Urine Bilirubin Negative Urine Urobilinogen Negative Ur Leukocyte Esterase Negative Urine RBC 0-2 Urine WBC 4-6 H Ur Squamous Epith Cells Rare Amorphous Sediment Few H Urine Bacteria Trace Urine Mucus Heavy H Final Diagnosis (1) False labor: Code(s): O47.9 - False labor, unspecified Status: Acute
== END 2021-01-20 21:39 | disposition home or self-care (01) ==
PROVIDERS: Advanced Practice Midwife; Admitting Provider Obstetrics & Gynecology; PCP Family Medicine; Visit Provider Obstetrics & Gynecology
DX: O47.03 False labor before 37 completed weeks of gestation, third trimester (principal); Z3A.36 36 weeks gestation of pregnancy
CPT/HCPCS: 81001; 87086; 96361; 96374; G0378; G0379; J2405; J7121

== ENCOUNTER 2021-01-24 21:56 | Outpatient (CLI) | payer OTHER, SELFPAY ==
[2021-01-24 23:10] LABS: Basophils Percent Auto 0.3 % (0.2-1.2); Eosinophils Absolute Auto 0.1 K/mm3 (0-0.3); Eosinophils Percent Auto 0.9 % (0-4.4); Hematocrit 35.1 % (37.0-47.0); Hemoglobin 12.1 g/dL (12.0-15.0); Immature Granulocyte Absolute 0.09 K/mm3 (0.00-0.031); Immature Granulocyte Percent A 0.9 % (0-0.5); Immature Platelet Fraction Pct 7.9 % (0.9-11.2); Lymphocytes Absolute Auto 1.99 K/mm3 (0.9-3.2); Lymphocytes Percent Auto 19.7 % (18.3-44.2); Mean Corpuscular HGB Conc 34.5 g/dl (32-36); Mean Corpuscular Hemoglobin 30.1 pg (26-34); Mean Corpuscular Volume 87.3 fl (80-100); Mean Platelet Volume 11.1 fl (7.4-10.4); Monocytes Absolute Auto 0.6 K/mm3 (0.1-0.6); Monocytes Percent Auto 6.1 % (2.6-8.5); Neutrophils Absolute Auto 7.3 K/mm3 (1.3-6.7); Neutrophils Percent Auto 72.1 % (45.5-73.1); Platelet Count Result 231 k/mm3 (150-375); Red Blood Count 4.02 M/mm3 (4.2-5.4); Red Cell Distribution Width 13.7 % (11.5-14.5); White Blood Count 10.1 K/mm3 (4.5-10.0)
[2021-01-24 23:29] LABS: Alanine Aminotransferase 11 U/L (4-35); Albumin Level 3.6 g/dL (3.5-5.1); Alkaline Phosphatase 130 U/L (38-126); Anion Gap 5 mmol/L (8-16); Aspartate Amino Transferase 21 U/L (14-36); Bilirubin,Total 0.4 mg/dL (0.2-1.3); Blood Urea Nitrogen 9 mg/dL (7-17); Calcium 9.5 mg/dL (8.4-10.2); Carbon Dioxide 24 mmol/L (22-30); Chloride 106 mmol/L (98-107); Estimated Glomerular Filt Rate > 60; Glucose 86 mg/dL (65-110); Potassium 3.7 mmol/L (3.4-5.0); Sodium 135 mmol/L (137-145); Uric Acid 7.5 mg/dL (2.5-7.5)
== END 2021-01-24 23:46 | disposition home or self-care (01) ==
LOC: ANHOBOP 22:48 → ANHLDR 22:48
PROVIDERS: Advanced Practice Midwife; PCP Family Medicine; Visit Provider Obstetrics & Gynecology
DX: O41.8X90 Other specified disorders of amniotic fluid and membranes, unspecified trimester, not applicable or unspecified (principal); Z3A.00 Weeks of gestation of pregnancy not specified
CPT/HCPCS: 36415; 59025; 80053; 84550; 85025; 85055; 99199

== ENCOUNTER 2021-01-28 11:48 | Inpatient (IN) | payer OTHER, SELFPAY ==
[2021-01-28] VITALS (125 sets, daily range): BP systolic 62–149; BP diastolic 33–108; PULSE 55–182; RESP 16–18; TEMP 36.2–36.8; O2SAT 92–100; BMI 41.8
--- OUTSIDE RECORDS SUMMARY | 2021-01-28 11:59 | XMS_ITS | Encounter Summary ---
:1995 Author Care Team Providers Name Role Phone Ta Meyers MD Primary Care Provider [phone] Reason for Visit OB visit Assessment and Plan 1. Pre-eclampsia 2. Maternal obesity complicating , childbirth and the puerperium, antepartum Discussion Note: None recorded.Patient educational handouts: No information available. Plan of Care Reminders Provider Appointments Ob Routine [place] Deepthi 02/04/2021 MD Arnoldo 11:30AM ? Ob Routine [place] Th erese 02/11/2021 MD Arnoldo 11:30AM Lab None ? ? recorded. Referral None ? ? recorded. Procedures None ? ? recorded. Surgeries None ? ? recorded. Imaging None ? ? recorded. Medications Name Start Date ? ? acetazolamide ER 500 mg capsule,extended release ? clypfsrizf-npzdbxvrbditc-iqagvqkn 50 mg-325 mg-40 mg t ablet ? cyclobenzaprine 10 mg tablet ? Take 1 tablet 3 times a day by oral route as needed. Fioricet 50 mg-300 mg-40 mg capsule ? Take 1 capsule every 4-6 hours by oral route as neede d. ? Medications Administered None recorded. Vitals Height Weight BMI Blood Pressure 6 ft 309 lbs 41.9 kg/m2 (1) 150
--- OUTSIDE RECORDS SUMMARY | 2021-01-28 12:00 | XMS_ITS | Encounter Summary ---
:1995 Author Care Team Providers Name Role Phone Ta Meyers MD Primary Care Provider [phone] Reason for Visit OB problem Assessment and Plan 1. Headache Discussion Note: None recorded.Patient educational handouts: No [...] acetazolamide ER 500 mg capsule,extended release ? qfrgaogqsj-cubcwprakbuez-pcwewkbz 50 mg-325 mg-40 mg t ablet ? cyclobenzaprine 10 mg tablet ? Take 1 tablet 3 times a day by oral route as needed. Fioricet 50 mg-300 mg-40 mg capsule ? Take 1 capsule every 4-6 hours by oral route as neede d. ? Medications Administered None recorded. Vitals Height Weight BMI Blood Pressure 6 ft 302 lbs 41 kg/m2 (1) 136/88 mm[H g] (2) 126/84 mm[Hg ] Results Lab Results
--- OUTSIDE RECORDS SUMMARY | 2021-01-28 12:00 | XMS_ITS | Encounter Summary ---
:1995 Author Care Team Providers Name Role Phone Ta Meyers MD Primary Care Provider [phone] Reason for Visit None recorded. Assessment and Plan 1. Maternal obesity complicating , childbirth and the puerperium, antepartum ? non-stress test Discussion Note: None recorded.Patient educational handouts: No information available. Plan of Care Reminders Provider Appointments Ob Routine [place] Deepthi 02/04/2021 MD Arnoldo 11:30AM ? Ob Routine Georgia Th erese 02/11/2021 MD Arnoldo 11:30AM Lab None ? ? recorded. Referral None ? ? recorded. Procedures None ? ? recorded. Surgeries None ? ? recorded. Imaging Non-stress [place] Test 01/28/2021 Medications Name Start Date ? ? acetazolamide ER 500 mg capsule,extended release ? ywaxgzgnnv-ntmzrggqtvrpx-ubzlncfj 50 mg-325 mg-40 mg t ablet ? cyclobenzaprine 10 mg tablet ? Take 1 tablet 3 times a day by oral route as needed. Fioricet 50 mg-300 mg-40 mg capsule ? Take 1 capsule every 4-6 hours by oral route as neede d. ? Medications Administered None recorded. Vitals None recorded. Results
--- OUTSIDE RECORDS SUMMARY | 2021-01-28 12:00 | XMS_ITS | Encounter Summary ---
:1995 Author Care Team Providers Name Role Phone Ta Meyers MD Primary Care Provider [phone] Reason for Visit None recorded. Assessment and Plan 1. Maternal obesity complicating , childbirth and the puerperium, antepartum ? US, obstetric, biophysical profile + non-stress test Discussion Note: None recorded.Patient educational handouts: No information available. Plan of Care Reminders Provider Appointments Ob Routine [place] Deepthi 02/04/2021 MD Arnoldo 11:30AM ? Ob Routine [place] Th erese 02/11/2021 MD Arnoldo 11:30AM Lab None recorded. ? ? Referral None recorded. ? ? Procedures None recorded. ? ? Surgeries None recorded. ? ? Imaging US, Obstetric, [facility] Biophysical Profile + 01/28/2021 Non-stress Test Medications Name Start Date ? ? acetazolamide ER 500 mg capsule,extended release ? udmptheffo-yqbcinwjhdmkk-wopvizod 50 mg-325 mg-40 mg t ablet ? cyclobenzaprine 10 mg tablet ? Take 1 tablet 3 times a day by oral route as needed. Fioricet 50 mg-300 mg-40 mg capsule ? Take 1 capsule every 4-6 hours by oral
--- OUTSIDE RECORDS SUMMARY | 2021-01-28 12:00 | XMS_ITS | Encounter Summary ---
:1995 Author Care Team Providers Name Role Phone Ta Meyers MD Primary Care Provider [phone] Reason for Visit None recorded. Assessment and Plan 1. Maternal obesity complicating , childbirth and the puerperium, antepartum ? US, obstetric, biophysical profile Discussion Note: None recorded.Patient educational handouts: No information available. Plan of Care Reminders Provider Appointments Ob Routine [place] Deepthi 02/04/2021 MD Arnoldo 11:30AM ? Ob Routine [place] Th erese 02/11/2021 MD Arnoldo 11:30AM Lab None recorded. ? ? Referral None recorded. ? ? Procedures None recorded. ? ? Surgeries None recorded. ? ? Imaging US, Obstetric, [facility] Biophysical Profile 01/21/2021 Medications Name Start Date ? ? acetazolamide ER 500 mg capsule,extended release ? ctbjlxcdsw-tkkyeoseofyhx-kprylmfm 50 mg-325 mg-40 mg t ablet ? cyclobenzaprine 10 mg tablet ? Take 1 tablet 3 times a day by oral route as needed. Fioricet 50 mg-300 mg-40 mg capsule ? Take 1 capsule every 4-6 hours by oral route as needkerrie dIla
--- OUTSIDE RECORDS SUMMARY | 2021-01-28 12:01 | XMS_ITS | Encounter Summary ---
:1995 Author Care Team Providers Name Role Phone Ta Meyers MD Primary Care Provider [phone] Reason for Visit None recorded. Assessment and [...] ? recorded. Imaging Non-stress [place] Test 01/20/2021 Medications Name Start Date ? ? acetazolamide ER 500 mg capsule,extended release ? lugyhlavuf-suetvnqlhukzb-ljhrbxek 50 mg-325 mg-40 mg t ablet ? cyclobenzaprine 10 mg tablet ? Take 1 tablet 3 times a day by oral route as needed. Fioricet 50 mg-300 mg-40 mg capsule ? Take 1 capsule every 4-6 hours by oral route as neede d. ? Medications Administered None recorded. Vitals None recorded. Results
--- OUTSIDE RECORDS SUMMARY | 2021-01-28 12:01 | XMS_ITS | Encounter Summary ---
:1995 Author Care Team Providers Name Role Phone Ta Meyers MD Primary Care Provider [phone] Reason for Visit OB visit [id number] / GBS today Assessment and Plan 1. Routine care Discussion Note: None recorded.Patient educational handouts: No [...] acetazolamide ER 500 mg capsule,extended release ? zuyiozsepb-elaqbjqrgdytn-llrprucq 50 mg-325 mg-40 mg t ablet ? cyclobenzaprine 10 mg tablet ? Take 1 tablet 3 times a day by oral route as needed. Fioricet 50 mg-300 mg-40 mg capsule ? Take 1 capsule every 4-6 hours by oral route as neede d. ? Medications Administered None recorded. Vitals Height Weight BMI Blood Pressure 6 ft 301 lbs 40.8 kg/m2 127/86 mm[Hg] Results Lab Results
--- OUTSIDE RECORDS SUMMARY | 2021-01-28 12:01 | XMS_ITS | Encounter Summary ---
:1995 Author Care Team Providers Name Role Phone Ta Meyers MD Primary Care Provider [phone] Reason for Visit None recorded. Assessment and Plan 1. Maternal obesity complicating , childbirth and the puerperium, antepartum ? US, obstetric, biophysical profile + non-stress test ? US, obstetric, follow-up Discussion Note: None recorded.Patient educational handouts: No information available. Plan of Care Reminders Provider Appointments Ob Routine [place] Deepthi 02/04/2021 MD Arnoldo 11:30AM ? Ob Routine [place] Th erese 02/11/2021 MD Arnoldo 11:30AM Lab None recorded. ? ? Referral None recorded. ? ? Procedures None recorded. ? ? Surgeries None recorded. ? ? Imaging US, [facility] Biophysical Profile + 01/14/2021 Non-stress Test ? US, [facility] Follow-up 01/14/2021 Medications Name Start Date ? ? acetazolamide ER 500 mg capsule,extended release ? mwnwrlzvyu-aeaqbwbvlkbis-uebwzzpm
--- OUTSIDE RECORDS SUMMARY | 2021-01-28 12:02 | XMS_ITS | Encounter Summary ---
:1995 Author Care Team Providers Name Role Phone Ta Meyers MD Primary Care Provider [phone] Reason for Visit None recorded. Assessment and [...] None recorded. ? ? Imaging US, Obstetric, [facility] Biophysical Profile + 01/07/2021 Non-stress Test Medications Name Start Date ? ? acetazolamide ER 500 mg capsule,extended release ? zvbupzxhmt-cdclwhnsddiiu-xelnmvlq 50 mg-325 mg-40 mg t ablet ? cyclobenzaprine 10 mg tablet ? Take 1 tablet 3 times a day by oral route as needed. Fioricet 50 mg-300 mg-40 mg capsule ? Take 1 capsule every 4-6 hours by oral
--- OUTSIDE RECORDS SUMMARY | 2021-01-28 12:02 | XMS_ITS | Encounter Summary ---
:1995 Author Care Team Providers Name Role Phone Ta Meyers MD Primary Care Provider [phone] Reason for Visit None recorded. Assessment and Plan 1. Headache See pt case. Pt here for BP ch carlos. BP normal 136/86 Discussion Note: None recorded.Patient educational handouts: No [...] acetazolamide ER 500 mg capsule,extended release ? ooqhpxzwvi-izigwyqqywerm-uovitgnq 50 mg-325 mg-40 mg t ablet ? cyclobenzaprine 10 mg tablet ? Take 1 tablet 3 times a day by oral route as needed. Fioricet 50 mg-300 mg-40 mg capsule ? Take 1 capsule every 4-6 hours by oral route as neede d. ? Medications Administered None recorded. Vitals Blood Pressure 136/86 mm[Hg] Results Lab Results
--- OUTSIDE RECORDS SUMMARY | 2021-01-28 12:02 | XMS_ITS | Encounter Summary ---
:1995 Author Care Team Providers Name Role Phone Ta Meyers MD Primary Care Provider [phone] Reason for Visit None recorded. Assessment and Plan 1. Maternal obesity complicating , childbirth and the puerperium, antepartum ? US, obstetric, follow-up ? US, obstetric, biophysical profile Discussion Note: None recorded.Patient educational handouts: No information available. Plan of Care Reminders Provider Appointments Ob Routine [place] Deepthi 02/04/2021 MD Arnoldo 11:30AM ? Ob Routine [place] Th erese 02/11/2021 MD Arnoldo 11:30AM Lab None recorded. ? ? Referral None recorded. ? ? Procedures None recorded. ? ? Surgeries None recorded. ? ? Imaging US, Obstetric, [facility] Follow-up 01/02/2021 ? US, Obstetric, [facility] Biophysical Profile 01/02/2021 Medications Name Start Date ? ? acetazolamide ER 500 mg capsule,extended release ? nmvtfnglxj-fcuxdvkipzkxc-jksfxlzb 50 mg-325 mg-40 mg
--- OUTSIDE RECORDS SUMMARY | 2021-01-28 12:02 | XMS_ITS | Encounter Summary ---
:1995 Author Care Team Providers Name Role Phone Ta Meyers MD Primary Care Provider [phone] Reason for Visit None recorded. Assessment and [...] ? recorded. Imaging Non-stress [place] Test 01/07/2021 Medications Name Start Date ? ? acetazolamide ER 500 mg capsule,extended release ? qfsqydywcb-vyeakjlpiplwz-szrxrkhr 50 mg-325 mg-40 mg t ablet ? cyclobenzaprine 10 mg tablet ? Take 1 tablet 3 times a day by oral route as needed. Fioricet 50 mg-300 mg-40 mg capsule ? Take 1 capsule every 4-6 hours by oral route as neede d. ? Medications Administered None recorded. Vitals None recorded. Results
--- OUTSIDE RECORDS SUMMARY | 2021-01-28 12:02 | XMS_ITS | Encounter Summary ---
:1995 Author Care Team Providers Name Role Phone Ta Meyers MD Primary Care Provider [phone] Reason for Visit OB visit Assessment and Plan 1. Severe obesity complicating p regnancy 2. Headache Discussion Note: None recorded.Patient educational handouts: [...] acetazolamide ER 500 mg capsule,extended release ? xzlxrujrtu-bcqvxaisxahpq-zvrtrooq 50 mg-325 mg-40 mg t ablet ? cyclobenzaprine 10 mg tablet ? Take 1 tablet 3 times a day by oral route as needed. Fioricet 50 mg-300 mg-40 mg capsule ? Take 1 capsule every 4-6 hours by oral route as neede d. ? Medications Administered None recorded. Vitals Height Weight BMI Blood Pressure 6 ft 295 lbs 40 kg/m2 129/87 mm[Hg] Results Lab Results
--- OUTSIDE RECORDS SUMMARY | 2021-01-28 12:02 | XMS_ITS | Encounter Summary ---
:1995 Author Care Team Providers Name Role Phone Taniya Meyers MD Primary Care Provider [phone] Reason for Visit OB visit Assessment and Plan 1. -induced hypertensio n ? uric acid, serum or plasma ? CMP, serum or plasma ? protein:creatinine ratio, urine ? CBC w/ auto diff 2. Severe obesity complicating p regnancy Discussion Note: None recorded.Patient educational handouts: No information available. Plan of Care Reminders Provider Appointments Ob Routine [place] Deepthi 02/04/2021 MD Arnoldo 11:30AM ? Ob Routine [place] Th erese 02/11/2021 MD Arnoldo 11:30AM Lab Uric Acid, [facility] [place] Serum or Plasma 01/07/2021 [facility] (Lab) ? CMP, Serum [facility] [place] or Plasma 01/07/2021 [facility] (Lab) ? [facility] Protein:creatinine 01/07/2021 Hospital (Lab ) Ratio, Urine ? CBC W/ Auto [facility] [place] Diff 01/07/2021 Hospital (Lab) Referral None ? ? recorded. Procedures None ? ? recorded. Surgeries None ? ? recorded.
--- OUTSIDE RECORDS SUMMARY | 2021-01-28 12:02 | XMS_ITS | Encounter Summary ---
:1995 Author Care Team Providers Name Role Phone Ta Meyers MD Primary Care Provider [phone] Reason for Visit None recorded. Assessment and [...] ? recorded. Imaging Non-stress [place] Test 01/14/2021 Medications Name Start Date ? ? acetazolamide ER 500 mg capsule,extended release ? hcprzgwmhp-ramdzlzxcmssh-mxlkdoiq 50 mg-325 mg-40 mg t ablet ? cyclobenzaprine 10 mg tablet ? Take 1 tablet 3 times a day by oral route as needed. Fioricet 50 mg-300 mg-40 mg capsule ? Take 1 capsule every 4-6 hours by oral route as neede d. ? Medications Administered None recorded. Vitals None recorded. Results
--- OUTSIDE RECORDS SUMMARY | 2021-01-28 12:03 | XMS_ITS | Encounter Summary ---
:1995 Author Care Team Providers Name Role Phone Ta Meyers MD Primary Care Provider [phone] Reason for Visit OB visit Assessment and Plan 1. Severe obesity complicating p regnancy 2. Routine care Discussion Note: None recorded.Patient educational [...] acetazolamide ER 500 mg capsule,extended release ? pwxcvhkdqj-abvukssozyqdh-fphwxnyl 50 mg-325 mg-40 mg t ablet ? cyclobenzaprine 10 mg tablet ? Take 1 tablet 3 times a day by oral route as needed. Fioricet 50 mg-300 mg-40 mg capsule ? Take 1 capsule every 4-6 hours by oral route as neede d. ? Medications Administered None recorded. Vitals Height Weight BMI Blood Pressure 6 ft 288 lbs 39.1 kg/m2 114/78 mm[Hg] Results La
--- OUTSIDE RECORDS SUMMARY | 2021-01-28 12:03 | XMS_ITS | Encounter Summary ---
:1995 Author Care Team Providers Name Role Phone Ta Meyers MD Primary Care Provider [phone] Reason for Visit OB visit Assessment and [...] acetazolamide ER 500 mg capsule,extended release ? qmowzknojg-ghswuutygmfmb-tunntrny 50 mg-325 mg-40 mg t ablet ? cyclobenzaprine 10 mg tablet ? Take 1 tablet 3 times a day by oral route as needed. Fioricet 50 mg-300 mg-40 mg capsule ? Take 1 capsule every 4-6 hours by oral route as neede d. ? Medications Administered None recorded. Vitals Height Weight BMI Blood Pressure 6 ft 287 lbs 38.9 kg/m2 119/80 mm[Hg] Results L
--- OUTSIDE RECORDS SUMMARY | 2021-01-28 12:03 | XMS_ITS | Encounter Summary ---
:1995 Author Care Team Providers Name Role Phone Taniya Meyers MD Primary Care Provider [phone] Reason for Visit OB problem pt here c/o abdominal pain and brown dis charge Assessment and Plan 1. Strain of abdominal muscle ? cyclobenzaprine 10 mg tabl et Discussion Note: None recorded.Patient educational handouts: No [...] acetazolamide ER 500 mg capsule,extended release ? pxvrfcchey-prjqfccgdzvig-vjxqkirz 50 mg-325 mg-40 mg t ablet ? cyclobenzaprine 10 mg tablet ? Take 1 tablet 3 times a day by oral route as needed. Fioricet 50 mg-300 mg-40 mg capsule ? Take 1 capsule every 4-6 hours by oral route as neede d. ? Medications Administered None recorded. Vitals Height Weight BMI Blood Pressure 6 ft 281 lbs 38.1 kg/m2
--- OUTSIDE RECORDS SUMMARY | 2021-01-28 12:03 | XMS_ITS | Encounter Summary ---
:1995 Author Care Team Providers Name Role Phone Taniya eMyers MD Primary Care Provider [phone] Reason for Visit OB visit Assessment and Plan 1. Severe obesity complicating p regnancy Discussion Note: [...] acetazolamide ER 500 mg capsule,extended release ? lvklhiqdgt-rzixpsrihutwp-vyvlepni 50 mg-325 mg-40 mg t ablet ? cyclobenzaprine 10 mg tablet ? Take 1 tablet 3 times a day by oral route as needed. Fioricet 50 mg-300 mg-40 mg capsule ? Take 1 capsule every 4-6 hours by oral route as neede d. ? Medications Administered None recorded. Vitals Height Weight BMI Blood Pressure 6 ft 294 lbs 39.9 kg/m2 114/76 mm[Hg] Results Lab Results None recorded.
--- OUTSIDE RECORDS SUMMARY | 2021-01-28 12:04 | XMS_ITS | Encounter Summary ---
:1995 Author Care Team Providers Name Role Phone Taniya Meyers MD Primary Care Provider [phone] Reason for Visit None recorded. Assessment and Plan 1. Abdominal pain in ? US, obstetric, limited Discussion Note: None recorded.Patient educational handouts: No information available. Plan of Care Reminders Provider Appointments Ob Routine [place] Deepthi 02/04/2021 MD Arnoldo 11:30AM ? Ob Routine [place] Th erese 02/11/2021 MD Arnoldo 11:30AM Lab None ? ? recorded. Referral None ? ? recorded. Procedures None ? ? recorded. Surgeries None ? ? recorded. Imaging US, [place] [facility], [facility] 11/11/2020 Medications Name Start Date ? ? acetazolamide ER 500 mg capsule,extended release ? ogtzqvwgkm-dqiqjdjfriubs-aoeqmzxe 50 mg-325 mg-40 mg t ablet ? cyclobenzaprine 10 mg tablet ? Take 1 tablet 3 times a day by oral route as needed. Fioricet 50 mg-300 mg-40 mg capsule ? Take 1 capsule every 4-6 hours by oral route as neede d. ? Medications Administered None recorded. Vitals None recorded. Results Lab Results None recorded. Allerg
--- NOTE | 2021-01-28 12:47 | LDADM ---
This patient, Lobo Hahn, was admitted to Labor/Delivery/Recovery 107 on 01/28/21 at 11:48. Plans for labor, pain management and were discussed with patient. Patient/family oriented to hospital policies and general routines including ID bracelet, bed and alarms, visiting hours, pain management, procedures, bathroom and other care routines, personal items, smoking policy, room service/diet and guest tray routines, security routines, and visiting hours. Patient/Family are encouraged to report perceived risks to care and to ask questions if they do not understand what they are told or what they should do. See OBIX for further documentation.
[2021-01-28] MEDS: LACTATED RINGERS 1,000 ML 125 ML IV CONT ×2 (12:59→21:55)
[2021-01-28] MEDS: OXYTOCIN 30 UNITS/NS 500 ML 30 UNITS/500 ML BAG IV CONT (13:00)
[2021-01-28 13:08] LABS: Basophils Percent Auto 0.3 % (0.2-1.2); Creatinine Urine 94.3 mg/dL; Eosinophils Absolute Auto 0.1 K/mm3 (0-0.3); Eosinophils Percent Auto 0.7 % (0-4.4); Hematocrit 32.2 % (37.0-47.0); Hemoglobin 11.4 g/dL (12.0-15.0); Immature Granulocyte Absolute 0.06 K/mm3 (0.00-0.031); Immature Granulocyte Percent A 0.8 % (0-0.5); Lymphocytes Percent Auto 18.3 % (18.3-44.2); Mean Corpuscular HGB Conc 35.4 g/dl (32-36); Mean Corpuscular Hemoglobin 30.2 pg (26-34); Mean Corpuscular Volume 85.2 fl (80-100); Mean Platelet Volume 10.7 fl (7.4-10.4); Monocytes Absolute Auto 0.4 K/mm3 (0.1-0.6); Monocytes Percent Auto 5.6 % (2.6-8.5); Neutrophils Absolute Auto 5.7 K/mm3 (1.3-6.7); Neutrophils Percent Auto 74.3 % (45.5-73.1); Platelet Count Result 195 k/mm3 (150-375); Red Blood Count 3.78 M/mm3 (4.2-5.4); Red Cell Distribution Width 13.6 % (11.5-14.5); Total Protein Urine Random 14 mg/dL; Ur Ttl Prot Creatinine Ratio 0.15 mg/mg (0-0.20); White Blood Count 7.6 K/mm3 (4.5-10.0)
[2021-01-28 13:17] LABS: Alanine Aminotransferase 12 U/L (4-35); Albumin Level 3.2 g/dL (3.5-5.1); Alkaline Phosphatase 124 U/L (38-126); Anion Gap 5 mmol/L (8-16); Aspartate Amino Transferase 19 U/L (14-36); Bilirubin,Total 0.3 mg/dL (0.2-1.3); Blood Urea Nitrogen 8 mg/dL (7-17); Calcium 8.9 mg/dL (8.4-10.2); Carbon Dioxide 21 mmol/L (22-30); Chloride 109 mmol/L (98-107); Estimated CRCL calculation 192 ml/min; Estimated Glomerular Filt Rate > 60; Glucose 109 mg/dL (65-110); Potassium 3.8 mmol/L (3.4-5.0); Sodium 135 mmol/L (137-145)
[2021-01-28 13:25] LABS: Uric Acid 7.2 mg/dL (2.5-7.5)
[2021-01-28] MEDS: MAGNESIUM SULF 4 GM/WATER100ML 4 GM/100 ML BAG IVPB (14:33)
[2021-01-28] MEDS: MAGNESIUM SULF 20GM/WATER500ML 500 ML 50 MG IV CONT (15:10)
--- NOTE | 2021-01-28 18:09 | PM.IMHP ---
H&P: HPI History of Present Illness Date/Time: 01/28/21 18:09 Chief Complaint: induction of labor Narrative: Lobo is a G1 at 37.5 with hypertension and persistent CALLE. CALLE has been ongoing last couple weeks, but BPs were mostly normal. Today in office BPs 150/100 and CALLE worse so sent for induction. otherwise complicated by obesity. Review of Systems Review of Systems: All systems reviewed & are unremarkable except as noted in HPI and below PMFSH Family History Family History Grandparent Breast cancer in female Alzheimer disease Father Hypertension Kidney stones Gall stones Arthritis Mother Thyroid goiter Social History Social History Smoking status: Never smoker Substance use: former Spiritual care concerns: No Meds Home Medications and Allergies Home Medications Medication Instructions Recorded Confirmed Type PNV cmb#95-ferrous fumarate-FA 1 tablet PO DAILY 01/10/21 01/28/21 History [] acetazolamide 500 mg PO BID tablet 01/17/21 01/28/21 Rx Allergies Allergy/AdvReac Type Severity Reaction Status Date / Time banana Allergy Unknown Swelling Verified 01/14/21 13:33 Penicillins Allergy Unknown HIVES Verified 11/07/19 09:06 Vital Signs Vital Signs - 24 hr 01/28/21 13:02 01/28/21 13:16 01/28/21 13:31 Temperature Pulse Rate 69 55 L 67 Respiratory Rate Blood Pressure 127/89 133/91 H 143/83 H 01/28/21 13:46 01/28/21 14:01 01/28/21 14:16 Temperature Pulse Rate 67 63 62 Respiratory Rate Blood Pressure 134/89 130/95 H 135/90 01/28/21 14:31 01/28/21 14:40 01/28/21 14:46 Temperature 97.1 F L Pulse Rate 63 62 68 Respiratory Rate 16 Blood Pressure 129/89 129/89 135/95 H 01/28/21 15:01 01/28/21 15:16 01/28/21 15:31 Temperature Pulse Rate 70 66 64 Respiratory Rate Blood Pressure 146/94 H 145/91 H 144/86 H 01/28/21 15:46 01/28/21 16:01 01/28/21 16:16 Temperature Pulse Rate 78 64 75 Respiratory Rate Blood Pressure 132/86 138/93 H 141/93 H 01/28/21 16:31 01/28/21 16:46 01/28/21 17:01 Temperature Pulse Rate 67 64 74 Respiratory Rate Blood Pressure 131/88 130/95 H 143/89 H 01/28/21 17:16 01/28/21 17:31 01/28/21 17:46 Temperature Pulse Rate 70 72 63 Respiratory Rate Blood Pressure 135/93 H 142/95 H 144/88 H Exam Const: General: no acute distress Resp: Effort & Inspection: normal respiratory effort Auscultation: clear to auscultation bilaterally Cardio: Rate: regular rate Rhythm: regular rhythm GI: GI Palp: Yes Soft to palpation : Other: Cervix 3/80/-3 AROM clear Extrem: General: normal to inspection H&P: Results Labs Labs: Short CBC 01/28/21 Range/Units 12:44 WBC 7.6 (4.5-10.0) K/mm3 Hgb 11.4 L (12.0-15.0) g/dL Hct 32.2 L (37.0-47.0) % Plt Count 195 (150-375) k/mm3 BMP 01/28/21 12:44 Sodium 135 L Potassium 3.8 Chloride 109 H Carbon Dioxide 21 L BUN 8 Creatinine 0.60 L Glucose 109 Calcium 8.9 Liver Function 01/28/21 Range/Units 12:44 Total Bilirubin 0.3 (0.2-1.3) mg/dL AST 19 (14-36) U/L ALT 12 (4-35) U/L Alkaline Phosphatase 124 (38-126) U/L Albumin 3.2 L (3.5-5.1) g/dL Assessment and Plan Additional Plan Here for induction of labor-pitocin- for PreE s/p arom GBS neg magnesium due to persistent CALLE FHT category 1 POC discussed iwth pt, , and RN
--- NOTE | 2021-01-28 18:52 | WPDANESEPP ---
Anes - Eval Pre Procedure Procedure: Labor epidural Date/Time: 01/28/21 18:52 Surgeon: Arnoldo Preop Diagnosis: Abd pain with contractions Pre Op Diagnosis: iol Patient Data Age: 25 Gender: F Height: 1.83 m Weight: 140 kg Last Vital Signs Temp 98.2 F 01/28/21 18:32 Pulse 64 01/28/21 18:46 Resp 18 01/28/21 18:32 BP 137/86 01/28/21 18:46 Pulse Ox 98 01/28/21 18:32 Allergies Allergy/AdvReac Type Severity Reaction Status Date / Time banana Allergy Unknown Swelling Verified 01/14/21 13:33 Penicillins Allergy Unknown HIVES Verified 11/07/19 09:06 Home Medications Medication Instructions Recorded Confirmed Type PNV cmb#95-ferrous fumarate-FA 1 tablet PO DAILY 01/10/21 01/28/21 History [] acetazolamide 500 mg PO BID tablet 01/17/21 01/28/21 Rx Laboratory Tests 01/28/21 01/28/21 01/28/21 12:44 12:44 12:44 WBC 7.6 K/mm3 K/mm3 (4.5-10.0) RBC 3.78 M/mm3 L M/mm3 (4.2-5.4) Hgb 11.4 g/dL L g/dL (12.0-15.0) Hct 32.2 % L % (37.0-47.0) MCV 85.2 fl fl (80-100) MCH 30.2 pg pg (26-34) MCHC 35.4 g/dl g/dl (32-36) RDW 13.6 % % (11.5-14.5) Plt Count 195 k/mm3 k/mm3 (150-375) MPV 10.7 fl H fl (7.4-10.4) Immature Gran % (Auto) 0.8 % H % (0-0.5) Neut % (Auto) 74.3 % H % (45.5-73.1) Lymph % (Auto) 18.3 % % (18.3-44.2) Cooke % (Auto) 5.6 % % (2.6-8.5) Eos % (Auto) 0.7 % % (0-4.4) Baso % (Auto) 0.3 % % (0.2-1.2) Lymph # (Auto) 1.40 K/mm3 K/mm3 (0.9-3.2) [place] # (Auto) 0.4 K/mm3 K/mm3 (0.1-0.6) Eos # (Auto) 0.1 K/mm3 K/mm3 (0-0.3) Baso # (Auto) 0.0 K/mm3 K/mm3 (0.0-0.1) Abs Immat Gran (auto) 0.06 K/mm3 H K/mm3 (0.00-0.031) Absolute Neuts (auto) 5.7 K/mm3 K/mm3 (1.3-6.7) Absolute Nucleated RBC 0.0 K/mm3 K/mm3 (0.0-0.012) Nucleated RBC % 0.0 % % (0.0-0.2) Sodium 135 mmol/L L mmol/L (137-145) Potassium 3.8 mmol/L mmol/L (3.4-5.0) Chloride 109 mmol/L H mmol/L (98-107) Carbon Dioxide 21 mmol/L L mmol/L (22-30) Anion Gap 5 mmol/L L mmol/L (8-16) BUN 8 mg/dL mg/dL (7-17) Creatinine 0.60 mg/dL L mg/dL (0.7-1.0) Estim Creat Clear Calc 192 ml/min ml/min Estimated GFR > 60 (59 - ) Glucose 109 mg/dL mg/dL (65-110) Uric Acid 7.2 mg/dL mg/dL (2.5-7.5) Calcium 8.9 mg/dL mg/dL (8.4-10.2) Total Bilirubin 0.3 mg/dL mg/dL (0.2-1.3) AST 19 U/L U/L (14-36) ALT 12 U/L U/L (4-35) Alkaline Phosphatase 124 U/L U/L (38-126) Total Protein 6.0 g/dL L g/dL (6.3-8.2) Albumin 3.2 g/dL L g/dL (3.5-5.1) U Random Total Protein Urine Creatinine Protein/Creat Ratio 2 RPR Blood Type Antibody Screen 01/28/21 01/28/2121 12:44 12:44 12:44 WBC RBC Hgb Hct MCV MCH MCHC RDW Plt Count MPV Immature Gran % (Auto) Neut % (Auto) Lymph % (Auto) [place] % (Auto) Eos % (Auto) Baso % (Auto) Lymph # (Auto) [place] # (Auto) Eos # (Auto) Baso # (Auto) Abs Immat Gran (auto) Absolute Neuts (auto) Absolute Nucleated RBC Nucleated RBC % Sodium Potassium Chloride Carbon Dioxide Anion Gap BUN Creatinine Estim Creat Clear Calc Estimated GFR Glucose Uric Acid Calci
[2021-01-28] MEDS: ACETAMINOPHEN 500 MG TABLET 1000 MG PO (23:39)
[2021-01-29] VITALS (157 sets, daily range): BP systolic 69–164; BP diastolic 42–103; PULSE 56–190; RESP 16–20; TEMP 36.4–37.2; O2SAT 60–100
[2021-01-29] MEDS: LACTATED RINGERS 1,000 ML 125 ML IV CONT (00:32)
[2021-01-29] MEDS: MAGNESIUM SULF 20GM/WATER500ML 500 ML 50 MG IV CONT ×3 (01:12→22:24)
[2021-01-29] MEDS: OXYTOCIN 30 UNITS/NS 500 ML 30 UNITS/500 ML BAG 125 UNITS IV CONT (06:56)
--- NOTE | 2021-01-29 07:05 | P.PCNOB_ITS ---
OB - Delivery Note Procedure Delivery date: 01/29/21 Procedure: events: Pre-Eclampsia and Labor Induction Intrapartal events: Severe Preeclampsia Induction method: AROM and per pitocin protocol Delivery monitor: external FHT and internal uterine Route of delivery: Episiotomy description: None Laceration Description: Perineal - 2nd Degree Delivery repair: vicryl Specimen: No Quantitative Blood Loss (ml): 400 Anesthesia type: Epidural Disposition: floor Narrative: With adequate expulsive efforts by the mother, the baby's head was de livered OA. The baby's anterior shoulder was delivered under the pubic symphysis without difficulty. The posterior shoulder and the rest of the baby delivered without difficulty. The infant was placed on the mothers chest and suctioned and stimulated. The cord was clamped and cut after 30 seconds. Mother and baby both stable. Baby Date of : 01/29/21 Time of : 06:31 Weeks of gestation at delivery: 37 gender: Female Weight (pounds): 7 Weight (ounces): 5 presentation: vertex Placenta delivery description: Spontaneous cord vessel description: 3 Vessels and Delayed Cord Clamping score one minute: 8 score five minutes: 9
[2021-01-29 07:12] LABS: Rapid Plasma Reagin Non-Reactive (NonReactive)
[2021-01-29] MEDS: IBUPROFEN 600 MG TABLET PO (08:50)
[2021-01-29] MEDS: WITCH HAZEL 40 PADS 1 PAD TOPICAL (10:10)
[2021-01-29] MEDS: BENZOCAINE 20% AER SPR (*SP) 56 GM CAN 1 SPRAY TOPICAL (10:10)
--- NOTE | 2021-01-29 10:38 | OBPPTRN ---
Patient transferred to post room # 282 via wheelchair. Jannymaria luisa Montejo used to transfer pt to bed Support person present. Oriented to unit, room, information board, rooming in, admission packet and security measures. Patient verbalizes understanding.
--- NOTE | 2021-01-29 11:05 | PC.NURSE ---
Mother called out for assist with feeding. Mother reports infant is sleepy and makes eager attempts to latch and unable to maintain. Mother states infant attempted for 60 minutes with 5 minutes of feeding for first feeding. Infant appears to have a tight frenulum, both lips flange. Skin is intact on both nipples, both nipples appear flat with piercing noted. Discussed possible issues of piercing with mother. Nipple care reviewed of lanolin after feedings, warm compresses as needed. Reviewed infant feeding cues, frequencies, duration of feedings, feeding elimination flow sheet, and signs of adequate intake. Demonstrated stimulation techniques to wake infant for feeding. Assisted with to breast. Reviewed positioning/alignment in cross cradle, holding breast in ?U? hold and guided asymmetrical latch on. Reviewed rational for each. Infant made eager attempts and was unable to draw nipple in deeply. would latch shallow nursing eagerly and unable to maintain latch. Attempt for 20 minutes without a successful latch. Discussed nipple shield use and how shield may assist with latch. Mother is willing to attempt using shield. Initiated nipple shield due to flat nipples/ infant unable to maintain latch. Reviewed nipple shield precautions and possible complications. Instructions given on application and cleaning of shield. Patient able to return demonstration on proper application of shield. Discussed the need to initiate pumping if continues to nurse with the shield. Patient verbalizes understanding. With shield in place, able to latch correctly after several attempts. Infant nursed eagerly with steady draws and occasional swallowing noted for bursts followed with long pausing. Reviewed signs of a correct latch, effective nursing and suck swallow ratio. Infant was able to maintain latch without discomfort to mother. Suggested mother stimulate while feeding to increase stimulate, increase intake and to assist with maintaining deep latch. Demonstrated how to adjust latch more deeply while feeding if needed. Discussed the difference of effective vs ineffective feeding. Reviewed infant is latching with good burst of suckling, she is not feeding consistently at this feeding. Advised feedings need to be observed by RN. Instructed mother to call out for RN assistance if she is unable to latch for feeding or she has discomfort with nursing. Instructed feeding should be initiated three hours from start of last feeding or if feeding cues are noted before. Mother voiced understanding of information shared.
[2021-01-30 00:15] VITALS: BP 128/87; PULSE 83; RESP 16; TEMP 36.9; O2SAT 98
[2021-01-30] MEDS: IBUPROFEN 600 MG TABLET PO ×4 (00:28→23:59)
[2021-01-30 03:55] VITALS: BP 123/89; PULSE 81; RESP 16; TEMP 36.9; O2SAT 97
[2021-01-30 05:47] LABS: Hematocrit 30.7 % (37.0-47.0); Hemoglobin 10.3 g/dL (12.0-15.0)
[2021-01-30 07:00] VITALS: BP 131/85; PULSE 77; RESP 18; TEMP 36.7
--- NOTE | 2021-01-30 07:55 | PM.OBPNVD ---
OB - PN: Subj Subjective Date/time seen: 01/30/21 07:55 Patient comments: no complaints baby status: doing well OB - PN: Obj Data Labs CBC & Chem 7: 01/30/21 03:51 01/28/21 12:44 Labs: Laboratory Results - last 24 hr 01/30/21 03:51 Hgb 10.3 L Hct 30.7 L OB - PN A/P Plan day: 1 Plan: routine care Time Spent With Patient Time: Total time spent is greater than 50% in coordination of care (as documented) at patient's floor/unit and/or counseling patient: Time with patient: less than 15 minutes Review of Systems Review of Systems: All systems reviewed & are unremarkable except as noted in HPI and below Exam Narrative: Fundus firm and vaginal flow controlled. No lower ext redness, warmth, or edema. Negative homans. Denies h/a, v/d or e/p. Reflexes normal. Const: General: comfortable Chest: Breast/axilla inspection: normal inspection of the breasts Resp: Effort & Inspection: normal respiratory effort Cardio: Rate: regular rate GI: GI Palp: Yes Soft to palpation Psych: Appearance: grossly normal Affect: normal affect Attitude: cooperative Thought content: Yes Normal thought content present Judgement: Good judgement present (Psych)
--- NOTE | 2021-01-30 08:08 | WPDANLDPN2 ---
Anes-Prog Note L&D Date/Time: 01/30/21 08:08 Comfortable throughout: labor and delivery Neuraxial method: epidural Epidural/Spinal procedure site: clean & non-tender Neuro status: Neuro function grossly intact. Cardiovascular status: normal Respiratory status: normal Airway patency: baseline Mental status: baseline Post-Op hydration status: normal Vital Signs: Last Vital Signs Temp 36.9 C 01/30/21 03:55 Pulse 81 01/30/21 03:55 Resp 16 01/30/21 03:55 BP 123/89 01/30/21 03:55 Pulse Ox 97 01/30/21 03:55 Pain score (VAS): 0 I/O: Intake & Output 01/29/21 01/30/21 01/30/21 23:59 07:59 15:59 Intake Total 1300 1000 Output Total 1500 1600 Balance -200 -600 Post-procedural complaints: none Patient feedback: Patient satisfied with anesthetic care.
[2021-01-30] MEDS: DOCUSATE SODIUM 100 MG CAPSULE PO (11:09)
[2021-01-30] MEDS: MULTIVIT/MIN/PREN/FOL AC/IRON TABLET 1 TAB PO (11:09)
[2021-01-30 11:35] VITALS: BP 133/91; PULSE 74; RESP 18; TEMP 36.6; O2SAT 97
--- NOTE | 2021-01-30 14:10 | PC.NURSE ---
Upon entering mother has to breast with shield. Mother reports is more awake and nursing eagerly. Mother is supplementing after each feeding followed with 15 minutes of pumping. Nipple care reviewed of lanolin after feedings, warm compresses as needed. Infant nursed eagerly, with steady draws for rhythmical nursing with occasional swallowing noted. Reviewed signs of a correct latch, effective nursing and suck swallow ratio. was able to maintain latch without discomfort to mother. Suggested mother stimulate while feeding to increase stimulate, increase intake and to assist with maintaining deep latch. Demonstrated how to adjust latch more deeply while feeding if needed. Reviewed the difference of effective vs ineffective nursing. is effectively feeding using nipple shield. Reviewed nipple shield precautions and possible complications. Instructions given on application and cleaning of shield. Patient able to return demonstration on proper application of shield. Discussed the need for continued pumping if infant continues to nurse with the shield. Patient verbalizes understanding. Discussed weaning techniques. Suggested mother call out for assist if attempting latch without shield. Feeding options discussed, Mother would like to continue with supplementation. Feeding Plan is for mother to put to breast each feeding for up to 15 minutes each breast if infant desires, then pace feed supplement 20 mls and pump for 10-15 minutes. Parents are comfortable with supplementation and pumping. Discussed increasing supplementation as infant requires to satisfactions. Reviewed paced feeding and suggested to stop when is satisfied, as long as infant is having required output. With increased supplementation may not want to feed for 4 hours. Mother will continue to pump on infant feeding schedule and will increase session to 20 minutes if pumping every 4 hours. If begins to refuse or decrease amount of supplement desired, mother may discontinue supplement. Advised not to discontinue supplement until RN or LC observe feeding. Instructed mother to call out for RN assistance if she is unable to latch for feeding or she has discomfort with nursing. Instructed feeding should be initiated three hours from start of last feeding or if feeding cues are noted before. Mother voiced understanding of information shared.
[2021-01-30 15:19] VITALS: BP 120/75; PULSE 63; RESP 18
[2021-01-30 19:10] VITALS: BP 135/92; PULSE 67; RESP 16; TEMP 36.8; O2SAT 97
[2021-01-31] VITALS: BP 116/72; PULSE 66
[2021-01-31 03:50] VITALS: BP 134/71; PULSE 61
[2021-01-31] MEDS: IBUPROFEN 600 MG TABLET PO ×2 (05:32→13:18)
[2021-01-31 08:05] VITALS: BP 127/78; PULSE 66; RESP 18; TEMP 36.6; O2SAT 98
--- NOTE | 2021-01-31 08:24 | P.PNOB_ITS ---
OB - PN: Subj Subjective Date/time seen: 01/31/21 08:24 Patient comments: no complaints baby status: doing well [place] feeding status: exclusively breast feeding OB - PN: Obj Data Labs CBC & Chem 7: 01/30/21 03:51 01/28/21 12:44 OB - PN A/P Plan day: 2 Plan: routine care and discharge home Time Spent With Patient Time: Total time spent is greater than 50% in coordination of care (as documented) at patient's floor/unit and/or counseling patient: Time with patient: less than 15 minutes Exam Narrative: NAD abdomen soft, nontender, fundus firm below the umbilicus Extremities nontender, 1+ edema
--- NOTE | 2021-01-31 08:29 | PM.OBDSVD ---
DS: Admitting Diagnosis Discharge Date 01/31/21 Admitting Diagnosis severe PreEclampsia at term DS: Discharge Diagnosis Discharge Diagnosis (1) Pre-eclampsia, delivered: Code(s): O14.94 - Unspecified pre-eclampsia, complicating childbirth Status: Acute OB - DS: Summary OB Procedures : PIH Mgmt and Ultrasound OB Procedures Intrapartum: Spontaneous Vag Delivery OB Procedures: : None Peripartum Data Delivery Method: Natural Vaginal Laceration Description: Perineal - 2nd Degree complications: none Status at Discharge Functional status at discharge: independent ambulation Time Spent with Patient Time attestation: Total time spent providing and/or coordinating discharge services: Exam Narrative: NAD abdomen soft, appropriately tender Ext non tender, 1+ edema Discharge Plan Discharge Attending physician on discharge: Georgia Mclaughlin Discharging Clinician: Georgia Mclaughlin Anticipated Discharge Date/Time: 01/31/21 14:00 Patient Disposition: Home, Self-Care Activity: pelvic rest Diet: regular Patient Instructions: Antibiotic Form Stand Alone Forms: General Discharge Information Follow-up/Referrals: Georgia Mclaughlin MD [Physician] - 1 Week Discharge Medications: Continued PNV cmb#95-ferrous fumarate-FA [] 28 mg iron- 800 mcg Tablet 1 tablet PO DAILY RF: 0 Discontinued acetazolamide 250 mg Tablet 500 mg PO BID RF: 0 Date of admission: 01/28/21 11:48 Primary Care Provider: Ta Meyers Admitting Provider: Georgia Mclaughlin Attending physician on admission: Georgia Mclaughlin Condition: Stable
[2021-01-31] MEDS: MULTIVIT/MIN/PREN/FOL AC/IRON TABLET 1 TAB PO (09:30)
[2021-01-31] MEDS: DOCUSATE SODIUM 100 MG CAPSULE PO (09:30)
--- NOTE | 2021-01-31 10:10 | PC.NURSE ---
Observed mother is able to independently latch infant with appropriate positioning/alignment without nipple shield. She denies any nipple discomfort, is feeding as required and waking to feed if needed. Infant is more awake and making eager attempts with and maintaining latch. Infant will eagerly nurse for 15 minutes each feeding maintaining good latch. I Infant has increased effective feedings in the past 24 hours, all feedings is supplemented. is currently meeting outcomes for weight, output, jaundice and feeding frequencies. Mother continues to pump after all feedings without difficulties or discomfort. Mother has a pump for home use, assisted mother with use before discharge. Discussed the difference of effective vs ineffective feeding. Reviewed requires supplementation after all feedings. She is latching with good rhythmical suckling, with increased milk transfer at this time and continues to need to be supplement after . Feeding plan discussed, Feeding Plan is for mother to put to breast each feeding for up to 15 minutes, then pace feed supplement 25-30 mls and pump for 10-15 minutes. Discussed increasing supplementation as infant requires to satisfactions. Reviewed paced feeding and suggested to stop when infant is satisfied, as long as is having required output. With increased supplementation infant may not want to feed for 4 hours. Mother will continue to pump on feeding schedule and will increase session to 20 minutes if pumping every 4 hours. If infant begins to nurse consistently with long draws and frequent swallowing noted, infant may decrease supplementation and discontinue pumping. Advised not to discontinue supplement until a pre/post feeding evaluation by infant PCP, Follow up RN or LC is completed. Mother states she feels confident to continue feeding plan at home. Reviewed transition to breast milk, signs of adequate intake, and engorgement/relief. Instructed to call ICP if intake/output less than required. Reviewed regular medications mother is taking. Information provided per Mary. Reviewed community resources on the [facility] website and in the Mom/Baby guide. Information on outpatient services provided. Mother has no further questions at this time.
[2021-01-31 12:09] VITALS: BP 138/69; PULSE 69; RESP 16; TEMP 36.4; O2SAT 100
[2021-02-03 09:21] VITALS: BP 151/86; PULSE 71; RESP 20; TEMP 36.8; O2SAT 100
== END 2021-01-31 16:48 | disposition home or self-care (01) | DRG 807 ==
LOC: ANHLDR 11:57 → ANHOB2 01-29 10:50
PROVIDERS: Admitting Provider Obstetrics & Gynecology; PCP Family Medicine; Visit Provider Obstetrics & Gynecology
DX: O14.14 Severe pre-eclampsia complicating childbirth (principal); Z37.0 Single live birth; O99.214 Obesity complicating childbirth; E66.01 Morbid (severe) obesity due to excess calories; O70.1 Second degree perineal laceration during delivery; O13.4 Gestational [pregnancy-induced] hypertension without significant proteinuria, complicating childbirth; Z3A.37 37 weeks gestation of pregnancy
CPT/HCPCS: 36415; 80053; 82570; 84156; 84550; 85014; 85018; 85025; 86592; 86850; 86900; 86901; A9270; J2590; J3475; J7120

== ENCOUNTER 2023-04-08 10:30 | Emergency (ER) | payer OTHER, SELFPAY ==
[2023-04-08] VITALS (11 sets, daily range): BP systolic 116–139; BP diastolic 68–90; PULSE 64–98; RESP 12–23; TEMP 36.6; O2SAT 98–100
[2023-04-08 12:33] LABS: Basophils Percent Auto 0.4 % (0.2-1.2); Eosinophils Absolute Auto 0.1 K/mm3 (0-0.3); Eosinophils Percent Auto 1.5 % (0-4.4); Hematocrit 39.1 % (37.0-47.0); Hemoglobin 12.9 g/dL (12.0-15.0); Immature Granulocyte Absolute 0.02 K/mm3 (0.00-0.031); Immature Granulocyte Percent A 0.3 % (0-0.5); Lymphocytes Absolute Auto 1.86 K/mm3 (0.9-3.2); Lymphocytes Percent Auto 27.8 % (18.3-44.2); Mean Corpuscular Hemoglobin 28.8 pg (26-34); Mean Corpuscular Volume 87.3 fl (80-100); Mean Platelet Volume 9.3 fl (7.4-10.4); Monocytes Absolute Auto 0.4 K/mm3 (0.1-0.6); Monocytes Percent Auto 5.4 % (2.6-8.5); Neutrophils Absolute Auto 4.3 K/mm3 (1.3-6.7); Neutrophils Percent Auto 64.6 % (45.5-73.1); Platelet Count Result 326 k/mm3 (150-375); Red Blood Count 4.48 M/mm3 (4.2-5.4); Red Cell Distribution Width 12.7 % (11.5-14.5); White Blood Count 6.7 K/mm3 (4.5-10.0)
--- NOTE | 2023-04-08 12:42 | ED.FEMALEGU ---
HPI - Female Genitourinary General Chief complaint: Vaginal Bleeding Stated complaint: heavy vag bleeding Time Seen by Provider: 04/08/23 12:22 History of Present Illness HPI Narrative: Patient is a 27-year-old female who presents to the emergency department this afternoon complaining of vaginal bleeding that has been ongoing for 17 days. Patient states that it started out initially as her regular menses but the bleeding never stop. Patient called her OBGYN Dr. Sykes who placed her on progesterone and patient states that she is on day 9 of 10 from her progesterone. Patient states that the bleeding still persisted and states that while she was in the ED it did improve but she feels as though the bleeding should had stopped by now. Patient called her OBGYN and they said they can not see her in the office on Wednesday in approximately 5 days. Patient was getting lightheaded and wanted to make sure that her blood count is stable. Patient denies any chest pain, shortness of breath, nausea, vomiting, abdominal pain, dysuria, hematuria, constipation, diarrhea, melena, hematochezia, fevers or chills. Patient also denies any headaches, dizziness, blurry visions, focal weakness, numbness and or tingling. There are no other modifying, alleviating, or precipitating factors at this time. Related Data Home Medications Medication Instructions Recorded Confirmed vit no.95-ferrous 1 tablet PO DAILY 01/10/21 01/28/21 fumarate 28 mg-folic acid 800 mcg tablet () Allergies Allergy/AdvReac Type Severity Reaction Status Date / Time banana Allergy Unknown Swelling Verified 01/14/21 13:33 Penicillins Allergy Unknown HIVES Verified 11/07/19 09:06 Review of Systems Review of Systems: All systems are reviewed and are negative unless stated otherwise in the HPI. [facility] Past Medical History Medical History Depression with anxiety Gestational hypertension Migraines Morbid obesity and not yet delivered Raynauds disease Family History Family History Grandparent Breast cancer in female Alzheimer disease Father Hypertension Kidney stones Gall stones Arthritis Mother Thyroid goiter Social History Social History Smoking status: Never smoker Substance use: former Spiritual care concerns: No Exam Narrative: General: Alert, awake, afebrile, in no acute distress. HEENT: PERRL, no rhinorrhea, no post nasal drip, oropharynx clear. Neck: Trachea midline, no JVD, no lymphadenopathy. Cardiovascular: Regular rate and rhythm, no murmurs, rubs or gallops, no peripheral edema. Respiratory: Clear to auscultation bilaterally, no tachypnea, no wheezing, no rhonchi, no rubs, no respiratory distress. Abdomen: Soft, nontender, nondistended, no rebound, no guarding, no peritoneal signs. Pelvic: Exam performed which revealed normal external genitalia, normal cervix, blood pooling in the vaginal canal. Musculoskeletal: No joint swelling or deformity, normal muscle tone. Skin: No rashes or petechia, no signs of infection. Psychiatric: Alert and oriented, normal behavior and judgment for situation. Neurological: Alert and oriented to person, place, and time. Follows all commands. No focal deficits, speech is clear and fluent. Course Vital Signs Vital signs: Vital Signs Temperature 97.8 F 04/08/23 10:41 Pulse Rate 74 04/08/23 10:41 Respiratory Rate 16 04/08/23 10:41 Blood Pressure 139/90 04/08/23 10:41 Pulse Oximetry 100 04/08/23 10:41 Oxygen Delivery Room Air 04/08/23 10:41 Temperature 97.8 F 04/08/23 10:41 Pulse Rate 78 04/08/23 13:24 Respiratory Rate 23 H 04/08/23 13:24 Blood Pressure 124/68 04/08/23 12:59 Pulse Oximetry 100 04/08/23 13:24 Oxygen Delivery Room Air 04/08/23 12:21 MDM - Female
== END 2023-04-08 14:22 | disposition home or self-care (01) ==
PROVIDERS: Emergency Provider Emergency Medicine; PCP Internal Medicine
DX: N93.8 Other specified abnormal uterine and vaginal bleeding (principal); E28.2 Polycystic ovarian syndrome; I73.00 Raynaud's syndrome without gangrene; E66.01 Morbid (severe) obesity due to excess calories; Z68.39 Body mass index [BMI] 39.0-39.9, adult
CPT/HCPCS: 36415; 85025; 99284

== ENCOUNTER 2024-03-03 14:33 | Emergency (ER) | payer BC, SELFPAY ==
[2024-03-03 14:47] VITALS: BP 126/77; PULSE 86; RESP 20; TEMP 36.2; O2SAT 100
--- NOTE | 2024-03-03 15:29 | ED_ITS ---
HPI - URI/Sore Throat General Chief Complaint: Upper Respiratory Infection Stated Complaint: Congestion Time Seen by Provider: 03/03/24 15:30 History of Present Illness HPI Narrative: 28-year-old female presented for complaint of nasal congestion, sinus pressure and cough for over 10 days. States she has bloody nasal discharge when blowing nose. Endorses a hoarse voice. Denies shortness of breath, wheezing, nausea, vomiting, diarrhea or lethargy. Taking Sudafed. Related Data Allergies Allergy/AdvReac Type Severity Reaction Status Date / Time banana Allergy Unknown Swelling Verified 03/03/24 15:15 Penicillins Allergy Unknown HIVES Verified 03/03/24 15:15 Review of Systems Review of Systems: CONSTITUTIONAL: Denies body aches, fever, chills, or sweats. EYES: Denies visual changes, redness, or discharge. ENT: Reports rhinorrhea, congestion, denies sore throat or otalgia. CARDIOVASCULAR: Denies chest pain, palpitations, or edema. RESPIRATORY: Reports cough Denies dyspnea. GASTROINTESTINAL: Denies abdominal pain, nausea, vomiting, or diarrhea. MUSCULOSKELETAL: Denies back pain, joint pain, or myalgia. NEUROLOGIC: Denies headache PMFSH Past Medical History Medical History Raynauds disease Morbid obesity and not yet delivered Migraines Gestational hypertension Depression with anxiety Family History Family History Grandparent Breast cancer in female Alzheimer disease Father Hypertension Kidney stones Gall stones Arthritis Mother Thyroid goiter Social History Social History Smoking status: Never smoker Substance use: former Spiritual care concerns: No Exam Narrative: GENERAL: Mildly Ill-appearing, no acute distress. EYES: conjunctivae clear ENT: Mucous membranes moist. TMs pearly wiley with normal light reflex unclear effusion bilaterally; no tragal tenderness. Hoarse voice. Oropharynx not erythematous without lesions. No drooling, no trismus, uvula midline. No tripod positioning, hot potato voice, or soft palate swelling. NECK: Supple. No lymphadenopathy CHEST: Clear to auscultation, breath sounds equal. No respiratory distress, speaks in full sentences. HEART: Regular rate and rhythm. No murmur heard. SKIN: Warm, dry, no rash. NEURO: Alert and oriented x3. Course Course Emergency Course: Patient is aware of diagnosis, understands and agrees to treatment plan. Anticipatory guidance given. Patient agrees to follow-up as directed and is aware of reasons to seek care at the emergency department. Portions of this record may have been created with voice recognition software Level of Care: Express Care Visit Vital Signs Vital signs: Vital Signs Temperature 97.2 F L 03/03/24 14:47 Pulse Rate 86 03/03/24 14:47 Respiratory Rate 20 03/03/24 14:47 Blood Pressure 126/77 03/03/24 14:47 Pulse Oximetry 100 03/03/24 14:47 Oxygen Delivery Room Air 03/03/24 14:47 Temperature 97.2 F L 03/03/24 14:47 Pulse Rate 86 03/03/24 14:47 Respiratory Rate 20 03/03/24 14:47 Blood Pressure 126/77 03/03/24 14:47 Pulse Oximetry 100 03/03/24 14:47 Oxygen Delivery Room Air 03/03/24 14:47 MDM - URI/Sore Throat MDM Narrative Medical decision making narrative: Discussed physical exam findings consistent with sinusitis. Advise supportive treatments. Patient is appropriate for outpatient treatment and follow-up. Differential Diagnosis Differential diagnosis: Likely upper respiratory infection, viral infection and pharyngitis Discharge Plan Discharge Clinical Impression: Sinusitis Patient Disposition: Home, Self-Care Condition: Stable Instructions: Antibiotic Form, Sinusitis (ED) Additional Instructions: Take antibiotic as directed Recommendations: Flonase spray and Zyrtec (or Claritin/Nilsa) over the counter Cough syrup may cause drowsiness; avoid driving or take it at night time. Tylenol 1000mg every 8 hours as needed for pain Symptomatic treatment includes: rest, fluids, and increase humidity of the air at home. Follow up with your primary care provider in 1 week. Go to the ER for worsening symptoms or concerns. Patient Language: Macedonian Prescriptions: New prednisone 50 mg tablet 50 mg PO DAILY Qty: 5 0RF doxycycline hyclate 100 mg tablet 100 mg PO BID 7 Days Qty: 14 0RF Follow-up/Referrals: UNKNOWN,DOCTOR [Primary Care Provider] - Time of Disposition: 15:35
== END 2024-03-03 15:41 | disposition home or self-care (01) ==
PROVIDERS: Emergency Provider Nurse Practitioner Family
DX: J32.9 Chronic sinusitis, unspecified (principal); I73.00 Raynaud's syndrome without gangrene; E66.01 Morbid (severe) obesity due to excess calories; Z68.41 Body mass index [BMI] 40.0-44.9, adult
CPT/HCPCS: 99213; G0463